=== PATIENT | female | born 1990 | race Caucasian/White ===

== ENCOUNTER 2020-12-03 12:56 | Emergency (ER) | payer OTHER, SELFPAY | END 2020-12-03 15:40 | disposition left against medical advice (07) | LOC: HO.ED 15:08 | PROVIDERS: Emergency Provider Emergency Medicine; PCP Nurse Practitioner Family | DX: R21 Rash and other nonspecific skin eruption (principal) ==

== ENCOUNTER 2021-05-09 13:30 | Emergency (ER) | payer OTHER, SELFPAY ==
--- NOTE | 2021-05-09 | ECG_ITS ---
Test Reason : sob Blood Pressure : / mmHG Vent. Rate : 073 BPM Atrial Rate : 073 BPM P-R Int : 134 ms QRS Dur : 094 ms QT Int : 384 ms P-R-T Axes : 070 081 069 degrees QTc Int : 423 ms Normal sinus rhythm Incomplete right bundle branch block Borderline ECG No previous ECGs available Referred By: Generic ED Physician Electronically Signed By:Chase Curran
--- NOTE | ~2021-05-09 | XR_ITS ---
EXAMINATION: XR CHEST CLINICAL INFORMATION: Cough. COMPARISON: None. TECHNIQUE: PA view of the chest was obtained. FINDINGS: Normal appearance of the cardiomediastinal silhouette. Diffuse interstitial thickening without focal airspace opacities, pleural effusions or pneumothorax. No acute osseous abnormalities. The visualized upper abdomen is within normal limits. XR/XR chest 1V IMPRESSION: Mild interstitial thickening bilaterally is nonspecific and could be associated with asthma, bronchitis, reactive airways disease or atypical viral infections. Recommend clinical correlation.
[2021-05-09 16:19] VITALS: BP 100/52; PULSE 67; RESP 16; TEMP 36.9; O2SAT 95; BMI 20.1
[2021-05-09 18:21] LABS: COVID-19 Test Negative (Negative)
[2021-05-09 18:25] LABS: IDNOW Serial# 08D9AD1C; Influenza A Positive (Negative); Influenza B2 Negative (Negative); Strep A Nucleic Acid Negative (Negative)
--- NOTE | 2021-05-09 18:33 | ED_ITS ---
HPI - URI/Sore Throat General Chief Complaint: Upper Respiratory Symptoms Stated Complaint: Chest pain /SOB Time Seen by Provider: 05/09/21 17:35 Source: patient and family Mode of arrival: ambulatory Limitations: no limitations History of Present Illness HPI Narrative: 30-year-old female presenting to the ED with complaints of chills, fatigue, malaise, nasal congestion/ rhinorrhea and a productive cough since after she was exposed to someone with influenza. She denies being vaccinated to influenza. She she reports associated shortness of breath when she is coughing otherwise does not have any other shortness of breath. She denies any measured fevers, dizziness, headache, neck pain/ stiffness, trouble swallowing or breathing, loss of taste or smell, sore throat, recent oral intercourse, chest pain, dyspnea on exertion, orthopnea, palpitations, lower extremity edema or calf tenderness, nausea/vomiting / diarrhea constipation, abdominal pain, back pain, rashes or any other symptoms complaints or concerns at this time. She denies being on any oral contraceptive. MD elicited complaint: cough, rhinorrhea and nasal congestion Onset (ago): day(s) (4) Consistency: constant Severity: mild Description of mucous: clear, watery and yellow Able to tolerate fluids by mouth: Yes Exacerbating factors: deep breaths and other ( and coughing) Relieving factors: nothing Context: sick contacts Associated symptoms: chills, myalgias, rhinorrhea, nasal congestion, cough and shortness of breath Treatments prior to arrival: none Related Data Previous Rx's Medication Instructions Recorded acetaminophen 500 mg tablet 1,000 mg PO QID PRN #14 tab 05/09/21 (Tylenol Extra Strength) benzonatate 100 mg capsule 100 mg PO BID PRN #10 cap 05/09/21 ibuprofen 800 mg tablet 800 mg PO Q8H PRN #14 tab 05/09/21 nystatin 100,000 unit/mL oral 100,000 unit PO DAILY #473 ml 05/09/21 suspension Allergies Allergy/AdvReac Type Severity Reaction Status Date / Time codeine [CODEINE] Allergy Unknown RASH Unverified 11/06/19 19:06 codeine Allergy Unknown hives Uncoded 03/31/16 00:00 Review of Systems Review of Systems: Constitutional : + fatigue/malaise/ chills, No Weight loss, No Night Sweats ENT/Mouth : + nasal congestion/rhinorrhea, No Hearing loss, No Ear Pain, No Sinus Pain, No Hoarseness, No sore throat, No Swallowing Difficulty Eyes: No Eye Pain, No Swelling, No Redness, No Foreign Body, No Discharge, No Vision Changes Cardiovascular : No Chest Pain, + SOB, No Dyspnea on Exertion, No Orthopnea, No Edema, No Palpitations Respiratory : + Cough, No Sputum, No Wheezing, No Smoke Exposure, No Dyspnea Gastrointestinal : No Nausea, No Vomiting, No Diarrhea, No Constipation, No abdominal Pain, No Hematochezia, No Melena Genitourinary : no irregular bleeding, No Dysuria, No Urinary Frequency, No Hematuria, No Urinary Incontinence, No Urgency, No Flank Pain, No Urinary Flow Changes, No Hesitancy Musculoskeletal : No joint pain, + Myalgias, No Joint Swelling Skin : No Skin Lesions, No rash Neuro : No Weakness, No Numbness, No Paresthesias, No Loss of Consciousness, No Dizziness, No Headache Psych : No Anxiety/Panic, No Depression, No SI/HI/AH/VH, No Social Issues, Heme/Lymph: No Bruising, No Bleeding,No Lymphadenopathy Endocrine : No Polyuria, No Polydipsia, No Temperature Intolerance Yes all other systems are reviewed and are negative [facility] Past Medical History Attestation statement: The following information was validated with the patient. Social History Social History Advance Directives: No Advance Directives Information Provided: No Patient : No Physical Exam Vital Signs: Vital Signs: Last Vital Signs Temp 98.4 F 05/09/21 16:19 Pulse 67 05/09/21 16:19 Resp 16 05/09/21 16:19 BP 100/52 L 05/09/21 16:19 Pulse Ox 95 05/09/21 16:19 BMI result Body Mass Index 20.1 vital signs have been reviewed as normal and appeared to be correct. Blood pressure 100/52. Heart rate normal. Respiration rate normal. Temperature normal. Oxygen saturation normal. Appearance: Alert. Oriented X3. No acute distress. Head: Normal external exam. Normocephalic. Atraumatic. Eyes: PERRLA. EOMI. Conjunctiva and sclera normal. Eyelids normal. ENT: EAC normal. TM's Normal. Pharynx normal. Uvula midline. Moist mucous membranes. patient noted to have white plaques on tongue unable to be removed consistent with thrush. Otherwise no additional lesions/ulcerations or masses noted on the tongue. Normal voice. No trismus noted. No drooling noted. No muffled voice noted. Neck: Normal inspection. Neck supple. FROM. No adenopathy. Thyroid Normal. No tracheal deviation noted. No crepitus is noted. No meningeal signs. No neck mass noted. No signs of trauma noted. CVS: Normal heart rate and rhythm. Heart sound normal. Pulses normal throughout. No murmurs/rales/gallops. Respiratory: No respiratory distress. Painless inspiration. Breath sounds normal. No wheezes/rales/rhonchi noted. Chest nontender. No crepitus is noted. No signs of trauma noted. No accessory muscle usage noted or decreased air movement noted. No signs of trauma. Abdomen: Soft and nontender. Bowel sounds normal in all 4 quadrants. No distention noted. No organomegaly noted. No visible injury noted. Back: No CVA tenderness. Full range of motion noted. Nontender. No signs of trauma. Patient neuro intact bilaterally and distally on all 4 extremities. Patient's reflexes intact bilaterally and distally on all 4 extremities. No rashes/lesion/induration/fluctuance or signs of infection noted. Skin: Skin warm and dry. Normal skin color. Normal skin turgor. No rash es/lesions/lacerations noted. Extremities: No lower extremity edema. No calf tenderness is noted. Extremities exhibit normal range of motion and nontender. Neuro: Oriented X 3. No motor deficit. No sensory deficit. Reflexes normal. Normal steady gait. No focal neuro deficits noted. CN's II-XII intact bilaterally? Vascular: + radial pulses/+ 2 distal pedal pulses/+2 dorsalis pedis b/l. Normal cap refill. No cyanosis noted to upper extremity nails and lower extremity toes nails. Course Course Course Narrative: 30-year-old female presenting to the ED with complaints of chills, fatigue, malaise, nasal congestion/ rhinorrhea and a productive cough since after she was exposed to someone with influenza. She denies being vaccinated to influenza. She she reports associated shortness of breath when she is coughing otherwise does not have any other shortness of breath. She denies any measured fevers, dizziness, headache, neck pain/ stiffness, trouble swallowing or breathing, loss of taste or smell, sore throat, recent oral intercourse, chest pain, dyspnea on exertion, orthopnea, palpitations, lower extremity edema or calf tenderness, nausea/vomiting / diarrhea constipation, abdominal pain, back pain, rashes or any other symptoms complaints or concerns at this time. She denies being on any oral contraceptive. patient positive for influenza. Negative for COVID. Negative for strep. Chest x-ray consistent with viral syndrome/ asthma otherwise no evidence of p neumonia or any other acute processes. EKG was normal sinus rhythm with right bundle branch block otherwise no acute ischemic changes are noted. Therefore at this time will DC home with symptomatic treatment and treatment for oral thrush otherwise instructions to self isolate and to return if any new or worsening symptoms to follow up with primary care provider. Patient understands agrees with this plan. MDM - URI/Sore Throat Medical Records Attestation: I reviewed the patient's medical records. Lab Data Attestation: I reviewed the patient's lab results. Labs: Lab Results 05/09/21 05/09/21 05/09/21 Range/Units 17:49 17:49 17:49 COVID-19 (YONNY) Negative (Negative) COVID-19 Clin Com See Note Influenza Type A (UGO) Positive A (Negative) Influenza Type B (UGO) Negative (Negative) Influenza A & B Note See Note S. pyogenes GrpA UGO Negative (Negative) Imaging Data Chest x-ray: Attestation: I personally reviewed and interpreted this imaging study as follows: Radiologist's impression: FINDINGS: Normal appearance of the cardiomediastinal silhouette. Diffuse interstitial thickening without focal airspace opacities, pleural effusions or pneumothorax. No acute osseous abnormalities. The visualized upper abdomen is within normal limits. XR/XR chest 1V IMPRESSION: Mild interstitial thickening bilaterally is nonspecific and could be associated with asthma, bronchitis, reactive airways disease or atypical viral infections. Recommend clinical correlation. Discharge Plan Discharge Clinical Impression: Influenza A, Candidiasis of mouth Patient Disposition: Home, Self-Care Instructions: Influenza (DC), Flu Shot (Vaccine) for Adults (ED), Droplet Precautions (ED), Oral Candidiasis (ED) Prescriptions: New ibuprofen 800 mg tablet 800 mg PO Q8H PRN (Reason: pain) Qty: 14 0RF acetaminophen [Tylenol Extra Strength] 500 mg tablet 1,000 mg PO QID PRN (Reason: fever or pain) Qty: 14 0RF benzonatate 100 mg capsule 100 mg PO BID PRN (Reason: cough) Qty: 10 0RF nystatin 100,000 unit/mL suspension 100,000 unit PO DAILY Qty: 473 0RF Rx Instructions: administer 1/2 of dose in each side of the mouth Referrals: Physician,Unknown J [Primary Care Provider] - 2 days (your pcp) Stand Alone Forms: Work/School Release Print Language: Welsh
== END 2021-05-09 19:01 | disposition home or self-care (01) ==
PROVIDERS: Physician Assistant Medical; Emergency Provider Internal Medicine
DX: J11.1 Influenza due to unidentified influenza virus with other respiratory manifestations (principal); B37.0 Candidal stomatitis; R06.02 Shortness of breath; F17.200 Nicotine dependence, unspecified, uncomplicated
CPT/HCPCS: 71045; 87502; 87635; 87651; 93005; 99283

== ENCOUNTER 2021-05-16 01:02 | Inpatient (IN) | payer OTHER, SELFPAY ==
[2021-05-16] VITALS (8 sets, daily range): BP systolic 102–142; BP diastolic 60–85; PULSE 69–117; RESP 12–20; TEMP 36.3–38.7; O2SAT 93–99; BMI 20.1
--- NOTE | ~2021-05-16 | XR_ITS ---
EXAMINATION: XR CHEST CLINICAL INFORMATION: Cough COMPARISON: 05/09/2021 TECHNIQUE: PA and lateral views of the chest were obtained. FINDINGS: Patchy multifocal airspace consolidation in both lungs has progressed as compared to prior and is concerning for a multifocal pneumonia. No pneumothorax or pleural effusion. Cardiac and mediastinal contours are normal. No acute osseous findings. XR/XR chest 2V IMPRESSION: Patchy multifocal airspace consolidation in both lungs, most concerning for multifocal pneumonia.
--- NOTE | ~2021-05-16 | CT_ITS ---
EXAMINATION: CT HEAD WITHOUT CONTRAST CLINICAL INFORMATION: Headache, healing user COMPARISON: None TECHNIQUE: Contiguous axial imaging was performed from the skull base to vertex without intravenous administration of contrast. This CT examination was performed using dose optimization techniques as appropriate, variously including the following: *Automated exposure control *Adjustment of mA and/or kV according to patient size (this includes techniques or standardized protocols for targeted exams where dose is matched to indication/reason for exam; i.e. extremities or head) *Use of iterative reconstruction technique DLP: 573 mGy-cm FINDINGS: There is no evidence of acute intracranial hemorrhage or territorial infarction. No abnormal mass effect or midline shift is seen. Arias to white matter differentiation is well preserved. No extra-axial fluid collections are identified. The ventricles are normal in size. There is no abnormal attenuation within the brain parenchyma. The osseous structures and soft tissues are normal. There is diffuse mucoperiosteal thickening bilateral frontal, ethmoid, sphenoid, maxillary sinuses. There is air-fluid level in bilateral maxillary sinuses. There is mild mucoperiosteal thickening in right mastoid sinus as well. CT/CT head/brain wo con IMPRESSION: No acute intracranial process seen. Chronic pansinusitis with acute bilateral maxillary sinusitis.
[2021-05-16 02:15] LABS: COVID-19 Test Negative (Negative)
--- NOTE | 2021-05-16 04:27 | ED.GENADULT ---
HPI - General Adult General Chief complaint: General Medical Stated complaint: general weakness, flu? Time Seen by Provider: 05/16/21 04:27 Source: patient Mode of arrival: ambulatory Limitations: no limitations History of Present Illness HPI narrative: 30-year-old female who presents emergency department for evaluation of feeling sick for 2 weeks. The patient was seen 1 week prior and was positive for influenza A. she states that over the past 2 weeks she has had a cough which is productive of thick yellow sputum. She feels short of breath and has dyspnea on exertion. She denied chest pain. She states she has had fever on and off. She also states she has a constant headache which is located on the top of her head, the pain is a pressure-like pain which is 7/10 at its worst. She states that her voice is hoarse but she denied sore throat. She states she has had fatigue and body aches. She states that she is unable to taste food. She had nausea with several episodes of vomiting today. She denied diarrhea. The patient has a history of injection drug use and states that she continues to use intranasal heroin. She states she uses 10 bags of heroin daily. Related Data Previous Rx's Medication Instructions Recorded acetaminophen 500 mg tablet 1,000 mg PO QID PRN #14 tab 05/09/21 (Tylenol Extra Strength) benzonatate 100 mg capsule 100 mg PO BID PRN #10 cap 05/09/21 ibuprofen 800 mg tablet 800 mg PO Q8H PRN #14 tab 05/09/21 nystatin 100,000 unit/mL oral 100,000 unit PO DAILY #473 ml 05/09/21 suspension Allergies Allergy/AdvReac Type Severity Reaction Status Date / Time codeine [CODEINE] Allergy Unknown RASH Unverified 11/06/19 19:06 codeine Allergy Unknown hives Uncoded 03/31/16 00:00 Review of Systems Review of Systems: Yes all other systems are reviewed and are negative [facility] Past Medical History [facility] Narrative: Past medical history: Heroin use disorder, IV and intranasal. Past surgical history: None. Social history: She smokes 2 cigarettes per day times 11 years. She denies alcohol use. She uses heroin daily. She states she used to inject heroin but she is currently using intranasal heroin 10 bags a day. Social History Social History Alcohol intake: never Patient Tobacco Use Status: Current everyday Tobacco user Use of substances other than those prescribed or required for medical reasons: Yes Substance Use Type: Heroin Substance Use Frequency: Chronic Longstanding Last Used Substance: Just Prior to Admission Advance Directives: No Advance Directives Information Provided: Yes Physical Exam ED Vital Signs: Vital Signs - 24 hr 05/16/21 01:13 05/16/21 02:00 05/16/21 04:16 Temperature 101.6 F H 99 F 98.8 F Pulse Rate 117 H 88 96 Respiratory Rate 18 12 16 Blood Pressure 140/76 H 133/79 142/85 H Pulse Oximetry 93 94 94 BMI result Body Mass Index 20.1 Const Other: Awake, alert, female patient, she is very thin, she does have a slightly hoarse voice, she answers all questions appropriately, she has a productive sounding cough, she is pleasant and cooperative and does not appear to be in distress. HENMT Head: Yes normal to inspection, Yes normocephalic and Yes atraumatic Ears: external ears normal General nose exam: Normal external nose present Face and sinus: Yes normal facial exam Mouth: Normal oral and palatal mucosa present Throat: Yes posterior oropharynx normal Eyes General: appearance normal, both eyes and all related structures Pupils: Equal, round and reactive pupils present Neck Neck: Yes normal visual inspection, Yes no lymphadenopathy, Yes trachea midline and Yes supple Chest Chest palpation & inspection: normal inspection of the chest and normal palpation of entire chest wall Resp Effort & Inspection: normal respiratory effort and able to speak in complete sentences Auscultation: rhonchi throughout Cardio Rate: regular rate Rhythm: regular rhythm Heart sounds: S1 normal heart sound present, S2 normal heart sound present and no murmurs GI Inspection: Yes normal to inspection Palpation (GI): Soft to palpation, nontender and no guarding Auscultation: normal bowel sounds General: Yes no CVA tenderness Back/Spine/Pelvis Back: no CVA tenderness Skin General skin exam: no rashes or lesions noted Neuro Cranial nerves: Yes CN's II-XII intact bilaterally and Yes Equal, round and reactive pupils present Cognition (Neuro): normal cognition Motor exam (neuro): 5/5 motor strength present throughout Extrem Other: Patient does have track neil, no rashes or lesions, no evidence of cellulitis. Psych Appearance: grossly normal Speech and movement: Normal speech and movement present Affect: normal affect Attitude: cooperative Thought process: Normal thought process present Thought content: Normal thought content present Course Course Course Narrative: 30-year-old female with history of opiate use disorder, currently using intranasal heroin 10 bags a day, who tested positive for influenza A 1 week prior who presents to the emergency department for evaluation of 2 weeks of productive cough, headaches, intermittent fever, shortness of breath, dyspnea on exertion, fatigue, body aches loss of sense of taste. Initial vital signs revealed an elevated pulse of 117 an elevated temperature of 101.6 degrees F orally. Patient's blood pressures were slightly elevated 140/76. Lung exam did reveal diffuse rhonchorous sounds otherwise were unremarkable. Chest x-ray and COVID-19 test were ordered at triage. the COVID-19 test was negative. The chest x-ray was interpreted by the radiologist as patchy multifocal airspace consolidations in both lungs, most concerning for multifocal pneumonia. The differential includes but is not limited to viral pneumonia, bacterial pneumonia pulmonary embolism. I did order a laboratory evaluation to include CBC, CMP, lactate, blood cultures x2. I will also obtain a CT scan of her head secondary to her headache and a CT angiogram the program upper lung to rule out PE. I will treat her pneumonia with ceftriaxone 1 g IV and azithromycin 500 mg IV. Her headache will be treated with Toradol 15 mg IV, regular and 10 mg IV and Benadryl 25 mg IV. Given her 10 bags a day heroin use, I am concerned that she will withdraw from opiates therefore she was ordered to get methadone 20 mg orally. 0552: I did discuss the patient's presentation with the covering hospitalist, Dr. Tellez and she did accept the patient to the hospital service. After this discussion, I did add vancomycin 750 mg IV to the patient's antibiotic regimen Since the patient is a high risk for MRSA. Medical Decision Making Lab Data Result diagrams: 05/16/21 05:01 05/16/21 05:01 Labs: Lab Results 05/16/21 05/16/21 05/16/21 Range/Units 01:54 05:01 05:01 WBC 15.9 H (4.8-10.8) X10*3/uL RBC 4.04 L (4.20-5.50) X10*6/uL Hgb 12.1 (12.0-16.0) g/dl Hct 35.2 L (37.0-47.0) % MCV 87.1 (80.0-98.0) fL MCH 30.0 (27.0-33.0) pg MCHC 34.4 (31.0-35.0) g/dl RDW 12.4 (11.0-16.0) % Plt Count 345 (160-400) X10*3/uL MPV 10.6 (9.4-12.3) fL Immature Gran % (Auto) 1.1 H (0.0-0.4) % Neut % (Auto) 75.7 H (45-73) % Lymph % (Auto) 14.5 L (20-40) % Gem % (Auto) 7.6 (2-11) % Eos % (Auto) 0.9 (0-4) % Baso % (Auto) 0.2 (0-2) % Lymph # (Auto) 2.3 (1.2-4.9) X10*3/uL Gem # (Auto) 1.2 (0.1-1.2) X10*3/uL Eos # (Auto) 0.1 (0.0-0.4) X10*3/uL Baso # (Auto) 0.0 (0.0-0.2) X10*3/uL Abs Immat Gran (auto) 0.18 H (0.00-0.03) X10*3/uL Absolute Neuts (auto) 12.0 H (2.0-8.3) x10*3/uL Absolute Nucleated RBC 0.000 (0.0-0.012) X10*3/uL Nucleated RBC % (auto) 0.0 (0.0-0.2) /100WBC Sodium 139 (135-145) mmol/L Potassium 4.0 (3.3-5.1) mmol/L Chloride 105 (96-108) mmol/L Carbon Dioxide 24 (22-29) mmol/L Anion Gap 14 (12-20) BUN 8 L (9-16) mg/dL Creatinine 0.63 (0.5-1.4) mg/dL Estim Creat Clear Calc 103.7 Estimated GFR > 60 Random Glucose 106 (60-115) mg/dL Lactic Acid (0.5-2.0) mmol/L Calcium 8.6 (8.4-10.2) mg/dL Total Bilirubin 0.4 (0.0-1.0) mg/dL AST 11 (5-31) U/L ALT 12 (0-31) U/L Alkaline Phosphatase 98 (39-117) U/L C-Reactive Protein 14.06 H (< or = 0.50) mg/dL Total Protein 6.7 (6.5-8.0) g/dL Albumin 3.4 L (3.5-5.0) g/dL Lipase 4 L (8-78) U/L Beta HCG, Quant < 2 mIU/mL COVID-19 (YONNY) Negative (Negative) COVID-19 Clin Com See Note 05/16/21 Range/Units 05:01 WBC (4.8-10.8) X10*3/uL RBC (4.20-5.50) X10*6/uL Hgb (12.0-16.0) g/dl Hct (37.0-47.0) % MCV (80.0-98.0) fL MCH (27.0-33.0) pg MCHC (31.0-35.0) g/dl RDW (11.0-16.0) % Plt Count (160-400) X10*3/uL MPV (9.4-12.3) fL Immature Gran % (Auto) (0.0-0.4) % Neut % (Auto) (45-73) % Lymph % (Auto) (20-40) % Gem % (Auto) (2-11) % Eos % (Auto) (0-4) % Baso % (Auto) (0-2) % Lymph # (Auto) (1.2-4.9) X10*3/uL Gem # (Auto) (0.1-1.2) X10*3/uL Eos # (Auto) (0.0-0.4) X10*3/uL Baso # (Auto) (0.0-0.2) X10*3/uL Abs Immat Gran (auto) (0.00-0.03) X10*3/uL Absolute Neuts (auto) (2.0-8.3) x10*3/uL Absolute Nucleated RBC (0.0-0.012) X10*3/uL Nucleated RBC % (auto) (0.0-0.2) /100WBC Sodium (135-145) mmol/L Potassium (3.3-5.1) mmol/L Chloride (96-108) mmol/L Carbon Dioxide (22-29) mmol/L Anion Gap (12-20) BUN (9-16) mg/dL Creatinine (0.5-1.4) mg/dL Estim Creat Clear Calc Estimated GFR Random Glucose (60-115) mg/dL Lactic Acid 0.9 (0.5-2.0) mmol/L Calcium (8.4-10.2) mg/dL Total Bilirubin (0.0-1.0) mg/dL AST (5-31) U/L ALT (0-31) U/L Alkaline Phosphatase (39-117) U/L C-Reactive Protein (< or = 0.50) mg/dL Total Protein (6.5-8.0) g/dL Albumin (3.5-5.0) g/dL Lipase (8-78) U/L Beta HCG, Quant mIU/mL COVID-19 (YONNY) (Negative) COVID-19 Clin Com Critical Care Time Critical Care Time Critical Care Time: Yes Total Critical Care Time: 30 Attestation: Critical Care: The patient was critically ill with a high probability of imminent or life threatening deterioration. I spent greater than 30 minutes of discontinuous time evaluating the patient,delivering critical care at the bedside, discussing and evaluating pertinent data with consultants. Critical care time does not include time spent performing separately billable procedures or teaching. Total time spent performing critical care was 30 minutes. Discharge Plan Discharge Patient Disposition: Admitted As Inpatient Prescriptions: No Action ibuprofen 800 mg tablet 800 mg PO Q8H PRN (Reason: pain) Qty: 14 0RF acetaminophen [Tylenol Extra Strength] 500 mg tablet 1,000 mg PO QID PRN (Reason: fever or pain) Qty: 14 0RF benzonatate 100 mg capsule 100 mg PO BID PRN (Reason: cough) Qty: 10 0RF nystatin 100,000 unit/mL suspension 100,000 unit PO DAILY Qty: 473 0RF Rx Instructions: administer 1/2 of dose in each side of the mouth
[2021-05-16] MEDS: 0.9 % Sodium Chloride 1,000 ML 999 ML IV (05:07)
[2021-05-16 05:08] LABS: MANUAL DIFF FLAG NO
[2021-05-16 05:09] LABS: Basophils Percent Auto 0.2 % (0-2); Eosinophils Absolute Auto 0.1 X10*3/uL (0.0-0.4); Eosinophils Percent Auto 0.9 % (0-4); Hematocrit 35.2 % (37.0-47.0); Hemoglobin 12.1 g/dl (12.0-16.0); Imm Gran Abs Auto 0.18 X10*3/uL (0.00-0.03); Imm Gran Pct Auto 1.1 % (0.0-0.4); Lymphocytes Absolute Auto 2.3 X10*3/uL (1.2-4.9); Lymphocytes Percent Auto 14.5 % (20-40); Mean Corpuscular HGB Conc 34.4 g/dl (31.0-35.0); Mean Corpuscular Volume 87.1 fL (80.0-98.0); Mean Platelet Volume 10.6 fL (9.4-12.3); Monocytes Absolute Auto 1.2 X10*3/uL (0.1-1.2); Monocytes Percent Auto 7.6 % (2-11); Neutrophils Percent Auto 75.7 % (45-73); Platelet Count 345 X10*3/uL (160-400); Red Blood Count 4.04 X10*6/uL (4.20-5.50); Red Cell Distribution Width 12.4 % (11.0-16.0); White Blood Count 15.9 X10*3/uL (4.8-10.8)
[2021-05-16 05:19] LABS: Lactic Acid 0.9 mmol/L (0.5-2.0)
[2021-05-16] MEDS: cefTRIAXone sodium 1 GM in 0.9 % Sodium Chloride 50 ML IV (05:23)
[2021-05-16] MEDS: Metoclopramide HCl 10 MG/2 ML VIAL IVPUSH (05:24)
[2021-05-16] MEDS: diphenhydrAMINE HCL 50 MG/ML VIAL 25 MG IVPUSH (05:24)
[2021-05-16] MEDS: Ketorolac Tromethamine 15 MG/ML VIAL IVPUSH (05:25)
[2021-05-16 05:26] LABS: Alanine Aminotransferase 12 U/L (0-31); Albumin Level 3.4 g/dL (3.5-5.0); Alkaline Phosphatase 98 U/L (39-117); Anion Gap 14 (12-20); Aspartate Amino Transferase 11 U/L (5-31); Bilirubin Total 0.4 mg/dL (0.0-1.0); Blood Urea Nitrogen 8 mg/dL (9-16); C Reactive Protein 14.06 mg/dL (< or = 0.50); Calcium 8.6 mg/dL (8.4-10.2); Carbon Dioxide 24 mmol/L (22-29); Chloride 105 mmol/L (96-108); Creatinine Clr Calc Pharmacy 103.7; Estimated Glomerular Filt Rate > 60; Glucose Random 106 mg/dL (60-115); Lipase 4 U/L (8-78); Sodium 139 mmol/L (135-145); Total Protein 6.7 g/dL (6.5-8.0)
[2021-05-16 05:32] LABS: HCG Quantitative < 2 mIU/mL
[2021-05-16] MEDS: Azithromycin 500 MG in 0.9 % Sodium Chloride 250 ML 125 MG IV (06:07)
[2021-05-16] MEDS: methADONE HCl 10 MG TABLET 20 MG PO (06:07)
[2021-05-16 06:27] LABS: Erythrocyte Sedimentation Rate 94 MM/HR (0-20)
[2021-05-16] MEDS: vancomycin HCL 750 MG in 0.9 % Sodium Chloride 250 ML 265 MG IV (07:04)
--- NOTE | 2021-05-16 07:17 | PC.NURSE ---
Patient was at CAT SCAN and iv infiltrated. Ice applied to infiltrate. aware
--- NOTE | 2021-05-16 09:03 | PHA.MEDREC ---
Pharmacy Consult ? Medication Reconciliation Pharmacy has completed the medication reconciliation. PT FINISHED ALL MEDS PRESCRIBED 05/10. NOT ON ANY OTHER HOME MEDS
--- NOTE | 2021-05-16 09:48 | P.HPHOSP_ITS ---
History of Present Illness Date of Service: 05/16/21 Attending physician on admission: Cheryl Arias Chief Complaint: shortness of breath A 10-year-old female patient recently diagnosed to have influenza on May 09 presented to [facility] ED with symptoms of persistent shortness of breath worse with exertion, associated with cough productive of thick yellow phlegm, with associated fees fever and chills on and off and headache located on top of her head pressure like 7/10 at its worst, also complaining of generalized body ache, weakness no taste in food, also complained of decreased by mouth intake with nausea and several episodes of vomiting denies abdominal pain no diarrhea, denies chest pain, no palpitation. in ED workup showed bilateral infiltrate suggestive of multi focal pneumonia, COVID test is negative, noted to have elevated WBC count and a fever of 101.6, with elevated CRP 14.06, patient treated in the emergency room with IV azithromycin, ceftriaxone, IV fluid and 1 dose of methadone was given with history of intranasal of heroin use, patient admits of using 10 bags of heroin daily previously she was using IV drugs, patient denies recent history of travel. Review of Systems Review of Systems: General headache , no dizziness, on and off fever and chills. CVS no chest pain, no palpitation. Respiratory cough with thick sputum production no respiratory distress. Gastrointestinal multiple episodes of nausea and vomiting no abdominal pain no diarrhea skin no rash Yes all other systems are reviewed and are negative PMFSH Functional capacity: independent ambulation Pertinent family history: parents are alive and healthy Social History Alcohol intake: never Patient Tobacco Use Status: Current everyday Tobacco user Use of substances other than those prescribed or required for medical reasons: Yes Substance Use Type: Heroin Substance Use Frequency: Chronic Longstanding Last Used Substance: Just Prior to Admission Advance Directives: No Advance Directives Information Provided: Yes Meds Allergies Allergy/AdvReac Type Severity Reaction Status Date / Time codeine [CODEINE] Allergy Unknown RASH Unverified 11/06/19 19:06 codeine Allergy Unknown hives Uncoded 03/31/16 00:00 Active Medications: Current Medications Acetaminophen (Acetaminophen 325 Mg Tablet) 650 mg PO Q6H PRN PRN Reason: Pain, Mild (Pain Scale 1-3) Guaifenesin/Dextromethorphan (Guaifenesin Dm 100/10/5 Ml 5 Ml Syrup) 10 ml PO Q6H PRN PRN Reason: cough Ceftriaxone Sodium 1 gm/ (Sodium Chloride) 50 mls @ 100 mls/hr IV Q24H ALEXANDRO Azithromycin 500 mg/ Sodium (Chloride) 250 mls @ 125 mls/hr IV Q24H ALEXANDRO Ondansetron HCl (Ondansetron Hcl 4 Mg/2 Ml Vial) 4 mg IVPUSH Q8H PRN PRN Reason: Nausea and Vomiting Pharmacy Consult (Consult Rx Vancomycin Dosing) 1 each MISCELLANE DAILY PRN PRN Reason: Consult order Pharmacy Consult (Consult Rx Perform Med Rec) 1 each MISCELLANE ONCE PRN PRN Reason: Consult order Sodium Chloride (0.9 % Sodium Chloride Flush 3 Ml Syringe) 3 ml IVFLUSH QSHIFT [facility] Home Medications Medication Instructions Recorded Confirmed Last Taken Type No Known Home Meds 05/16/21 05/16/21 Unknown History Physical Exam Vital Signs and Narrative: Vital Signs: Last Vital Signs Temp 98.8 F 05/16/21 04:16 Pulse 69 05/16/21 07:17 Resp 20 05/16/21 07:17 BP 142/85 H 05/16/21 07:17 Pulse Ox 96 05/16/21 07:17 BMI result Body Mass Index 20.1 Const: Other: General resting comfortably, in no acute distress. HEENT pupil equal round reactive to light and accommodation Neck no JVD. CVS regular rate rhythm, Respiratory bilateral rhonchi, no respiratory distress Gastrointestinal abdomen soft, nontender, bowel sounds audible, no guarding , no rigidity. Extremities no edema. Neuro nonfocal Skin no rash psych appropriate affect Results Labs CBC and Chem 7: 05/16/21 05:01 05/16/21 05:01 Labs: Laboratory Results - last 24 hr 05/16/21 05/16/21 05/16/21 01:54 05:01 05:01 MCV 87.1 MCH 30.0 MCHC 34.4 RDW 12.4 Plt Count 345 MPV 10.6 Immature Gran % (Auto) 1.1 H Neut % (Auto) 75.7 H Lymph % (Auto) 14.5 L [place] % (Auto) 7.6 Eos % (Auto) 0.9 Baso % (Auto) 0.2 Lymph # (Auto) 2.3 [place] # (Auto) 1.2 Eos # (Auto) 0.1 Baso # (Auto) 0.0 Abs Immat Gran (auto) 0.18 H Absolute Neuts (auto) 12.0 H Absolute Nucleated RBC 0.000 Nucleated RBC % (auto) 0.0 ESR Anion Gap 14 Estim Creat Clear Calc 103.7 Estimated GFR > 60 Random Glucose 106 Lactic Acid Calcium 8.6 Total Bilirubin 0.4 AST 11 ALT 12 Alkaline Phosphatase 98 C-Reactive Protein 14.06 H Total Protein 6.7 Albumin 3.4 L Lipase 4 L Beta HCG, Quant < 2 COVID-19 (YONNY) Negative COVID-19 Clin Com See Note 05/16/21 05/16/21 05:01 05:01 MCV MCH MCHC RDW Plt Count MPV Immature Gran % (Auto) Neut % (Auto) Lymph % (Auto) [place] % (Auto) Eos % (Auto) Baso % (Auto) Lymph # (Auto) [place] # (Auto) Eos # (Auto) Baso # (Auto) Abs Immat Gran (auto) Absolute Neuts (auto) Absolute Nucleated RBC Nucleated RBC % (auto) ESR 94 H Anion Gap Estim Creat Clear Calc Estimated GFR Random Glucose Lactic Acid 0.9 Calcium Total Bilirubin AST ALT Alkaline Phosphatase C-Reactive Protein Total Protein Albumin Lipase Beta HCG, Quant COVID-19 (YONNY) COVID-19 Clin Com Imaging Radiologist's Impressions: Impressions Chest X-Ray 05/16/21 02:10 IMPRESSION: Patchy multifocal airspace consolidation in both lungs, most concerning for multifocal pneumonia. Head CT 05/16/21 06:50 IMPRESSION: No acute intracranial process seen. Chronic pansinusitis with acute bilateral maxillary sinusitis. Assessment and Plan (1) Pneumonia: Qualifiers: Laterality: bilateral Pneumonia type: due to unspecified organism Status: Acute (2) History of substance abuse: Status: Acute Plan 30-year-old female patient with no significant past medical history presented to [facility] due to symptoms of worsening shortness of breath on and off fever generalized weakness cough productive of thick phlegm patient recently diagnosed to have influenza a infection workup revealed multifocal pneumonia patient will be admitted to [facility] with diagnosis of sepsis due to pneumonia and heroin use disorder.. Sepsis due to multifocal pneumonia patient meets sepsis due to tachycardia leukocytosis and fever will admit to medical floor continue IV ceftriaxone and azithromycin, will use Tylenol for fever, Robitussin for cough follow CBC and CRP, follow blood cultures continue close clinical follow-up intractable headache CT head negative for intracranial pathology but showed pansinusitis and acute maxillary sinusitis continue antibiotic as above headache likely due to sepsis continue Tylenol and follow clinical course opiate use disorder use heroin 10 bags intranasally daily, treated in ER with 1 dose of methadone, will obtain care team consult, will use as needed Ativan/ morphine. code status full code DVT prophylaxis early ambulation patient will need to inpatient night hospitalization due to sepsis related to multifocal pneumonia need IV antibiotics. Quality Stroke Does the patient have a stroke diagnosis?: No VTE Prior VTE?: No VTE Risk Level:: Medical - low VTE Device Contraindication: Treatment Not Indicated VTE Drug Contraindication: Treatment Not Indicated
--- NOTE | 2021-05-16 10:47 | PC.NURSE ---
pt with visitor at bedside
[2021-05-16 13:23] LABS: Appearance Urine CLEAR; Color Urine YELLOW; Glucose Urine UA NEG (NEG); Leukocyte Esterase Urine NEG (NEG); Nitrite Urine NEG (NEG); PH 6.5 (5.0-8.0); UACC Culture Trigger NO; Urine Blood 2+ (NEG); Urine Ketones NEG (NEG); Urine Protein NEG (NEG-TRACE)
[2021-05-16 13:33] LABS: Mucus Urine TRACE /LPF; Squamous Epithelial Cell Urine TRACE /LPF
[2021-05-16] MEDS: 0.9 % Sodium Chloride Flush 3 ML SYRINGE IVFLUSH (16:17)
[2021-05-16] MEDS: Acetaminophen 325 MG TABLET 650 MG PO (16:17)
--- NOTE | 2021-05-16 18:52 | MHC.CM.PN ---
CM met with admitted patient with bed assignment pending. No HCP on file. Reviewed, completed and signed per protocol Copies given and uploaded into [facility] and [facility] [place]. HCP/mother Aaliyah Pereira ([phone]). Lives alone. No DME. No services. [facility] x1 only. CARE/recovery services notified of pt admission. Daily Heroin/10 bags/day. Started on methadone 05/16. D/C plan:home without services. Pt to arrange transportation. CM to follow for d/c needs.
[2021-05-17 02:20] VITALS: PULSE 48
[2021-05-17 05:08] VITALS: BP 126/75; PULSE 64; RESP 16; TEMP 36.7; O2SAT 99
--- NOTE | 2021-05-17 06:11 | PC.NURSE ---
This RN assumed care at 1900. Patient was sitting with mother and requested more methadone. Throughout the night, patient intermittently was screaming out curse words, asked for pain medicine. Heart rate noted to be consistently between 45-55 throughout the night, RN did not give pain medicine, hospitalist aware and agrees with plan. Patient had 2 IVs at the start of the shift, claims she was tossing and turning all night and that they came out. Patient adamant that she did not pull them out, told tech I'm leaving if I don't get methadone . RN intervened, explained to patient that the methadone was a one-time order. Patient upset, but able to calm down, refused IV. Patient is somewhat behavioral, refusing to use the bathooms in overflow because they're gross and I'm not doing this . After encouragement from RN, patient allowed RN to attempt IV one time, unsuccessful due to patient movement. This RN notified hospitalist, called another RN to try. Patient was rude to other RN, and said I'm cold, let's try again later . This RN set limits with patient regarding gamey behavior and stated that the other nurse would be back to attempt IV insertion at 6:30.
[2021-05-17] MEDS: methADONE HCl 20 MG/2 ML ORAL.CONC 30 MG PO (09:29)
--- NOTE | 2021-05-17 11:10 | PC.NURSE ---
Pt resting in hospital bed offering multiple complaints. Pt stating that she did not like her breakfast, pt requesting coffee, a hair tie and methadone. Pt refusing to allow this RN to place a line until a methadone order is in. Addiction care team at bedside and placed methadone order. Pt provided with prescribed methadone and this RN attempted to place an IV. Upon placing the IV this RN received a flash instantly, but pt moved and starting cursing saying, prateek botello, that fucking hurts. multiple times. Pt asked not to use such profanities as this is an environment that has to promote healing and other patients can here her. radiology technician even reminded pt to not use curse words so loudly. This RN essentially was unable to obtain IV access. Pt refusing to let this RN try again. 2nd nurse notified and will attempt to place a line. unable to hang both azithromax and rocephin that was due early this AM. pt aware. lungs sound coarse, pt a/o, ambulatory to the bathroom. 2nd RN to attempt IV access on pt.
--- NOTE | 2021-05-17 11:41 | MHC.RECOVRN ---
Met with pt in Overflow 3 to follow up after methadone initiation. Pt received 30 mg at 0930. Pt awake, alert, laying in bed. Pt reports feeling better and denies current withdrawal symptoms. Pt reports using heroin, 2 bundles daily, IV, as well as cocaine, INH, all day every day. Pt does report not feeling well due to pneumonia and inability to taste things is bothersome. Pt would like to continue methadone, unsure which OTP to be linked to. Pt will be provided with a list of local OTPs to choose which would be best since pt stays in [place]. Discussed with Maria Esther Strickland APRN. Will continue to follow.
[2021-05-17] MEDS: Azithromycin 500 MG TABLET PO (12:13)
[2021-05-17] MEDS: Nicotine 21 MG PATCH.TD24 TRANSDERMA (12:13)
--- NOTE | 2021-05-17 14:37 | HO.ADDICTCON ---
History of Present Illness Date of Service: 05/17/2021 Chief Complaint: Pneumonia Reason for Consult: OUD Requesting physician: Cheryl Arias Sources of Information: patient interviewed and chart reviewed HPI Narrative: Patient is a 30-year-old female with history of opioid use and cocaine use disorder, currently medically admitted with pneumonia. Consult requested to evaluate and treat opioid use disorder--patient was administered methadone 20 mg on 05/16 to address opioid withdrawal. Patient seen several times today by this script writer, initially patient was not feeling well verbalizing withdrawal symptoms. Methadone 30 mg ordered and administered with positive affect. Patient seen again by this script writer and substance use in treatment history obtained. -age of 1st use 20. Patient reports that she was using Percocet and then at age 22 began to use heroin. -does report history of IV drug use, has not used IV in over 2 years. -last use reported as prior to admission. States she has been using approximately 2 bundles of heroin/fentanyl daily intranasal. -reports 3 lifetime overdoses. -reports history of methadone treatment. Highest dose approximately 60 mg. It has been sometime since she was last treatment. Longest period in recovery was about 18 months, and this is right before she had her baby in 2017. She reports that she does not have custody of her son. -family history of both alcohol, cocaine and opiate use disorder Patient reports history of psychiatric admission for depression and suicidal ideation. She states that she has previously been in care for PTSD, at this time has no behavioral health providers. She is currently living with her boyfriend of about 1 year. She states that they live in ?hotels?. Denies any history of HIV, hepatitis. Has not been tested in quite some time. Will order labs during this visit. Review of Systems Constitutional: Reports as per HPI Gastrointestinal: Denies loose stools and Denies nausea Diagnostics Vital Signs (24Hr): Vital Signs - 24 hr 05/16/21 18:00 05/16/21 20:00 05/17/21 02:20 Temperature 98.1 F 97.4 F Pulse Rate 78 48 L Respiratory Rate 16 16 Blood Pressure 119/67 125/84 Pulse Oximetry 99 05/17/21 05:08 Temperature 98.0 F Pulse Rate 64 Respiratory Rate 16 Blood Pressure 126/75 Pulse Oximetry 99 BMI result Body Mass Index 20.1 Labs Results: 05/16/21 05:01 05/16/21 05:01 Labs: Laboratory Results - last 48 hr 05/16/21 05/16/21 05/16/21 01:54 05:01 05:01 WBC 15.9 H RBC 4.04 L Hgb 12.1 Hct 35.2 L MCV 87.1 MCH 30.0 MCHC 34.4 RDW 12.4 Plt Count 345 MPV 10.6 Immature Gran % (Auto) 1.1 H Neut % (Auto) 75.7 H Lymph % (Auto) 14.5 L [place] % (Auto) 7.6 Eos % (Auto) 0.9 Baso % (Auto) 0.2 Lymph # (Auto) 2.3 [place] # (Auto) 1.2 Eos # (Auto) 0.1 Baso # (Auto) 0.0 Abs Immat Gran (auto) 0.18 H Absolute Neuts (auto) 12.0 H Absolute Nucleated RBC 0.000 Nucleated RBC % (auto) 0.0 ESR Sodium 139 Potassium 4.0 Chloride 105 Carbon Dioxide 24 Anion Gap 14 BUN 8 L Creatinine 0.63 Estim Creat Clear Calc 103.7 Estimated GFR > 60 Random Glucose 106 Lactic Acid Calcium 8.6 Total Bilirubin 0.4 AST 11 ALT 12 Alkaline Phosphatase 98 C-Reactive Protein 14.06 H Total Protein 6.7 Albumin 3.4 L Lipase 4 L Beta HCG, Quant < 2 Urine Color Urine Appearance Urine pH Ur Specific [place] Urine Protein Urine Glucose (UA) Urine Ketones Urine Blood Urine Nitrite Ur Leukocyte Esterase Urine RBC Urine WBC Ur Squamous Epith Cells Urine Bacteria Urine Mucus COVID-19 (YONNY) Negative COVID-19 Clin Com See Note 05/16/21 05/16/21 05/16/21 05:01 05:01 13:16 WBC RBC Hgb Hct MCV MCH MCHC RDW Plt Count MPV Immature Gran % (Auto) Neut % (Auto) Lymph % (Auto) [place] % (Auto) Eos % (Auto) Baso % (Auto) Lymph # (Auto) [place] # (Auto) Eos # (Auto) Baso # (Auto) Abs Immat Gran (auto) Absolute Neuts (auto) Absolute Nucleated RBC Nucleated RBC % (auto) ESR 94 H Sodium Potassium Chloride Carbon Dioxide Anion Gap BUN Creatinine Estim Creat Clear Calc Estimated GFR Random Glucose Lactic Acid 0.9 Calcium Total Bilirubin AST ALT Alkaline Phosphatase C-Reactive Protein Total Protein Albumin Lipase Beta HCG, Quant Urine Color YELLOW Urine Appearance CLEAR Urine pH 6.5 Ur Specific [place] 1.020 Urine Protein NEG Urine Glucose (UA) NEG Urine Ketones NEG Urine Blood 2+ H Urine Nitrite NEG Ur Leukocyte Esterase NEG Urine RBC 5-9 H Urine WBC 1-4 Ur Squamous Epith Cells TRACE Urine Bacteria NONE Urine Mucus TRACE COVID-19 (YONNY) COVID-19 Clin Com Imaging Radiology Impressions: ITS Impressions Chest X-Ray 05/16/21 02:10 IMPRESSION: Patchy multifocal airspace consolidation in both lungs, most concerning for multifocal pneumonia. Head CT 05/16/21 06:50 IMPRESSION: No acute intracranial process seen. Chronic pansinusitis with acute bilateral maxillary sinusitis. Mental Status Exam Mental Status Exam Patient Appearance: Appropriate (poor dentition ) Patient Orientation: Person, Place, Time and Situation Level of Consciousness: Awake and Appropriate Patient Behavior: Guarded and Cooperative Mood Description: Appropriate Affect Description: Constricted Thought Process: Goal Oriented Thought Content: positive for Goal Oriented Judgement: Fair Medications Medications Current Medications Acetaminophen (Acetaminophen 325 Mg Tablet) 650 mg PO Q6H PRN PRN Reason: Pain, Mild (Pain Scale 1-3) Last Admin: 05/16/21 16:17 Dose: 650 mg Documented by: Azithromycin (Azithromycin 500 Mg Tablet) 500 mg PO Q24H [facility] Last Admin: 05/17/21 12:13 Dose: 500 mg Documented by: Cefuroxime Axetil (Cefuroxime Axetil 500 Mg Tablet) 500 mg PO Q12H [facility] Last Admin: 05/17/21 12:13 Dose: 500 mg Documented by: Clonidine HCl (Clonidine Hcl 0.1 Mg Tablet) 0.1 mg PO TID PRN; Protocol PRN Reason: anxiety/restlessness Guaifenesin/Dextromethorphan (Guaifenesin Dm 100/10/5 Ml 5 Ml Syrup) 10 ml PO Q6H PRN PRN Reason: cough Nicotine (Nicotine 21 Mg Patch.Td24) 21 mg TRANSDERMA DAILY [facility] Last Admin: 05/17/21 12:13 Dose: 21 mg Documented by: Ondansetron HCl (Ondansetron Hcl 4 Mg/2 Ml Vial) 4 mg IVPUSH Q8H PRN PRN Reason: Nausea and Vomiting Pharmacy Consult (Consult Rx Perform Med Rec) 1 each MISCELLANE ONCE PRN PRN Reason: Consult order Sodium Chloride (0.9 % Sodium Chloride Flush 3 Ml Syringe) 3 ml IVFLUSH QSHIFT ALEXANDRO Last Admin: 05/17/21 09:15 Dose: Not Given Documented by: Allergies Allergies Allergy/AdvReac Type Severity Reaction Status Date / Time codeine [CODEINE] Allergy Unknown RASH Unverified 11/06/19 19:06 codeine Allergy Unknown hives Uncoded 03/31/16 00:00 Assessment & Plan Assessment & Plan (1) Opioid use disorder, severe, dependence: Status: Acute Code(s): F11.20 - Opioid dependence, uncomplicated Assessment and Plan: Continue methadone titration. Tomorrow to receive 40 mg. Recovery support nurse will be sending referral paperwork to [facility] is this is were patient wants to go once outpatient Will order HIV and hepatitis pain Follow-up in the morning If necessary after patient p.r.n. clonidine and hydroxyzine to assist with any anxiety or restlessness secondary to withdrawal I spent ___65___ minutes with the patient and/or on the patient floor today, greater than?50% of which was spent counseling/coordinating care. [facility] Social History Social History Alcohol intake: never Patient Tobacco Use Status: Current everyday Tobacco user Use of substances other than those prescribed or required for medical reasons: Yes Substance Use Type: Heroin Substance Use Frequency: Chronic Longstanding Last Used Substance: Just Prior to Admission Advance Directives: No Advance Directives Information Provided: Yes service: No Current occupational status: unemployed
[2021-05-17] MEDS: guaiFENesin DM 100/10/5 ML 5 ML SYRUP 10 ML PO (15:02)
[2021-05-17] MEDS: Acetaminophen 325 MG TABLET 650 MG PO (15:02)
--- NOTE | 2021-05-17 16:07 | HO.PM.IMPN ---
Subjective Subjective Date of Service: 05/18/21 Interval History: complaining of withdrawal symptoms feeling cold sweaty, nauseous, with generalized body ache, denies shortness of breath, no other acute issues overnight, lost IV site. Review of Systems Review of Systems: Yes all other systems are reviewed and are negative Physical Exam Vital Signs: Vital Signs: Last Vital Signs Temp 98.0 F 05/17/21 05:08 Pulse 64 05/17/21 05:08 Resp 16 05/17/21 05:08 BP 126/75 05/17/21 05:08 Pulse Ox 99 05/17/21 05:08 BMI result Body Mass Index 20.1 Const: Other: General resting comfortably, Mild distress to withdrawal symptoms. HEENT pupil equal round reactive to light and accommodation Neck no JVD. CVS? regular rate rhythm, Respiratory? bilateral rhonchi, no respiratory distress Gastrointestinal abdomen soft, nontender, bowel sounds audible, no guarding , no rigidity. Extremities no edema. Neuro nonfocal Skin no rash psych appropriate affect Objective Data Active Medications Acetaminophen (Acetaminophen 325 Mg Tablet) 650 mg PO Q6H PRN PRN Reason: Pain, Mild (Pain Scale 1-3) Last Admin: 05/17/21 15:02 Dose: 650 mg Documented by: MARCO ANTONIO Azithromycin (Azithromycin 500 Mg Tablet) 500 mg PO Q24H [facility] Last Admin: 05/17/21 12:13 Dose: 500 mg Documented by: MARCO ANTONIO Cefuroxime Axetil (Cefuroxime Axetil 500 Mg Tablet) 500 mg PO Q12H [facility] Last Admin: 05/17/21 12:13 Dose: 500 mg Documented by: MARCO ANTONIO Clonidine HCl (Clonidine Hcl 0.1 Mg Tablet) 0.1 mg PO TID PRN; Protocol PRN Reason: anxiety/restlessness Guaifenesin/Dextromethorphan (Guaifenesin Dm 100/10/5 Ml 5 Ml Syrup) 10 ml PO Q6H PRN PRN Reason: cough Last Admin: 05/17/21 15:02 Dose: 10 ml Documented by: MARCO ANTONIO Methadone HCl (Methadone Hcl 20 Mg/2 Ml Oral.Conc) 40 mg PO ONCE@0800 [facility] Stop: 05/18/21 08:01 Nicotine (Nicotine 21 Mg Patch.Td24) 21 mg TRANSDERMA DAILY [facility] Last Admin: 05/17/21 12:13 Dose: 21 mg Documented by: MARCO ANTONIO Ondansetron HCl (Ondansetron Hcl 4 Mg/2 Ml Vial) 4 mg IVPUSH Q8H PRN PRN Reason: Nausea and Vomiting Pharmacy Consult (Consult Rx Perform Med Rec) 1 each MISCELLANE ONCE PRN PRN Reason: Consult order Sodium Chloride (0.9 % Sodium Chloride Flush 3 Ml Syringe) 3 ml IVFLUSH QSHIFT [facility] Last Admin: 05/17/21 14:38 Dose: Not Given Documented by: MARCO ANTONIO Non-Admin Reason: No Access Trazodone HCl (Trazodone Hcl 50 Mg Tablet) 50 mg PO BEDTIME PRN PRN Reason: Sleep Labs CBC & Chem 7: 05/16/21 05:01 05/16/21 05:01 Microbiology Microbiology Results: Microbiology 05/16/21 05:01 Blood Culture - Preliminary Blood - Arterial No growth after 24 hours. 05/16/21 05:01 Blood Culture - Preliminary Blood - Arterial No growth after 24 hours. Assessment and Plan (1) Opioid use disorder, severe, dependence: Status: Acute (2) Pneumonia: Status: Acute Plan 30-year-old female patient with no significant past medical history presented to [facility] due to symptoms of worsening shortness of breath on and off fever generalized weakness cough productive of thick phlegm patient recently diagnosed to have influenza a infection workup revealed multifocal pneumonia patient will be admitted to [facility] with diagnosis of sepsis due to pneumonia and? heroin use disorder.. ?? Sepsis due to multifocal pneumonia ?? no further episodes of fever or tachycardia ?? on IV ceftriaxone and azithromycin, patient lost IV site therefore will transition antibiotics to by mouth Ceftin and azithromycin, re-attempt IV, continue supportive care with Tylenol and cough medication ?? follow CBC and CRP, blood cultures x2 negative times 24 hours, continue close clinical follow-up ? intractable headache CT head negative for intracranial pathology but showed pansinusitis and acute maxillary sinusitis ? continue antibiotic as above ? headache resolved ? severe opiate use disorder Noted to have significant withdrawal symptoms ? use heroin intranasally daily, obtained Addiction Team consult patient started on methadone and trazodone at bedtime for sleep continue clonidine for withdrawal symptoms ? code status full code ? DVT prophylaxis early ambulation ? patient will need inpatient hospitalization due to multifocal pneumonia, on antibiotics, ongoing withdrawal symptoms being followed by addiction team . Quality Stroke Does the patient have a stroke diagnosis?: No VTE Prior VTE?: No VTE Risk Level:: Medical - low VTE Device Contraindication: Treatment Not Indicated VTE Drug Contraindication: Treatment Not Indicated
[2021-05-17 17:52] VITALS: BP 123/67; PULSE 82; RESP 16; O2SAT 94
--- NOTE | 2021-05-18 | ECG_ITS ---
Test Reason : bradycardia/check for prolong QT Blood Pressure : / mmHG Vent. Rate : 068 BPM Atrial Rate : 068 BPM P-R Int : 126 ms QRS Dur : 082 ms QT Int : 406 ms P-R-T Axes : 055 067 060 degrees QTc Int : 431 ms Normal sinus rhythm Normal ECG When compared with ECG of 09-MAY-2021 14:22, Incomplete right bundle branch block is no longer Present Referred By: Cheryl Arias Electronically Signed By:DADA PERALTA
[2021-05-18] MEDS: guaiFENesin DM 100/10/5 ML 5 ML SYRUP 10 ML PO ×2 (03:45→13:27)
--- NOTE | 2021-05-18 03:59 | PC.NURSE ---
This RN assumed care at 1900. Patient was calm and cooperative and fell asleep. Woke up at 345 AM requesting methadone, was told it's too early, and instead received requested PRN cough medicine. Will continue to monitor.
[2021-05-18 05:31] VITALS: PULSE 51; RESP 23; O2SAT 96
[2021-05-18] MEDS: Acetaminophen 325 MG TABLET 650 MG PO ×3 (06:26→19:28)
[2021-05-18] MEDS: cloNIDine HCL 0.1 MG TABLET PO (07:16)
[2021-05-18] MEDS: Nicotine 21 MG PATCH.TD24 TRANSDERMA ×2 (08:02→19:28)
[2021-05-18] MEDS: methADONE HCl 20 MG/2 ML ORAL.CONC 40 MG PO (08:02)
--- NOTE | 2021-05-18 09:54 | MHC.RECOVRN ---
[facility] Referral has been sent. Pt will need last dose letter upon dc.
--- NOTE | 2021-05-18 10:57 | PC.NURSE ---
pt requesting methadone at 7:00am. pt notified that she cannot get methadone until 8am. Pt requesting clonidine to help with withdrawls. PRN given per request. pt medicated per mar at appropriate time. Pt offering no other complaints at this time. pt resting in the hospital bed. NSR-SB in the high 40s on the cardiac cath lab technologist. pt belongings and callbell within reach.
[2021-05-18 12:19] VITALS: BP 128/64; PULSE 47; RESP 15; O2SAT 98
[2021-05-18] MEDS: Azithromycin 500 MG TABLET PO (12:43)
--- NOTE | 2021-05-18 15:16 | HO.PM.IMPN ---
Subjective Subjective Date of Service: 05/19/21 Review of Systems General resting comfortably,? Mild distress to withdrawal symptoms. HEENT pupil equal round reactive to light and accommodation Neck no JVD. CVS? regular rate rhythm, Respiratory? bilateral rhonchi, no respiratory distress Gastrointestinal abdomen soft, nontender, bowel sounds audible, no guarding , no rigidity. Extremities no edema. Neuro nonfocal Skin no rash psych appropriate affect Physical Exam Vital Signs: Vital Signs: Last Vital Signs Temp 98.0 F 05/17/21 05:08 Pulse 47 L 05/18/21 12:19 Resp 15 05/18/21 12:19 BP 128/64 05/18/21 12:19 Pulse Ox 98 05/18/21 12:19 BMI result Body Mass Index 20.1 Objective Data Active Medications Acetaminophen (Acetaminophen 325 Mg Tablet) 650 mg PO Q6H PRN PRN Reason: Pain, Mild (Pain Scale 1-3) Last Admin: 05/18/21 13:27 Dose: 650 mg Documented by: MARCO ANTONIO Azithromycin (Azithromycin 500 Mg Tablet) 500 mg PO Q24H [facility] Last Admin: 05/18/21 12:43 Dose: 500 mg Documented by: MARCO ANTONIO Cefuroxime Axetil (Cefuroxime Axetil 500 Mg Tablet) 500 mg PO Q12H [facility] Last Admin: 05/18/21 12:43 Dose: 500 mg Documented by: MARCO ANTONIO Clonidine HCl (Clonidine Hcl 0.1 Mg Tablet) 0.1 mg PO TID PRN; Protocol PRN Reason: anxiety/restlessness Last Admin: 05/18/21 07:16 Dose: 0.1 mg Documented by: MARCO ANTONIO Guaifenesin/Dextromethorphan (Guaifenesin Dm 100/10/5 Ml 5 Ml Syrup) 10 ml PO Q6H PRN PRN Reason: cough Last Admin: 05/18/21 13:27 Dose: 10 ml Documented by: MARCO ANTONIO Nicotine (Nicotine 21 Mg Patch.Td24) 21 mg TRANSDERMA DAILY [facility] Last Admin: 05/18/21 08:02 Dose: 21 mg Documented by: MARCO ANTONIO Ondansetron HCl (Ondansetron Hcl 4 Mg/2 Ml Vial) 4 mg IVPUSH Q8H PRN PRN Reason: Nausea and Vomiting Pharmacy Consult (Consult Rx Perform Med Rec) 1 each MISCELLANE ONCE PRN PRN Reason: Consult order Sodium Chloride (0.9 % Sodium Chloride Flush 3 Ml Syringe) 3 ml IVFLUSH QSHIFT [facility] Last Admin: 05/18/21 07:11 Dose: Not Given Documented by: MARCO ANTONIO Non-Admin Reason: No Access Trazodone HCl (Trazodone Hcl 50 Mg Tablet) 50 mg PO BEDTIME PRN PRN Reason: Sleep Labs CBC & Chem 7: 05/16/21 05:01 05/16/21 05:01 Microbiology Microbiology Results: Microbiology 05/16/21 05:01 Blood Culture - Preliminary Blood - Arterial No growth after 48 hours. 05/16/21 05:01 Blood Culture - Preliminary Blood - Arterial No growth after 48 hours. Assessment and Plan (1) Opioid use disorder, severe, dependence: Status: Acute (2) History of substance abuse: Status: Acute (3) Pneumonia: Status: Acute Plan 30-year-old female patient with no significant past medical history presented to [facility] due to symptoms of worsening shortness of breath on and off fever generalized weakness cough productive of thick phlegm patient recently diagnosed to have influenza a infection workup revealed multifocal pneumonia patient will be admitted to [facility] with diagnosis of sepsis due to pneumonia and? heroin use disorder.. ?? Sepsis due to multifocal pneumonia ?? no further episodes of fever or tachycardia persistent shortness of breath and cough ?? on ceftin and azithromycin, continue supportive care with Tylenol and cough medication ?? CBC and CRP ordered, unable to draw due to poor IV access, ? blood cultures x2 negative times 48 hours, continue close clinical follow-up ? intractable headache CT head negative for intracranial pathology but showed pansinusitis and acute maxillary sinusitis ? continue antibiotic as above ? bradycardia likely related to methadone, will obtain EKG, follow QT ? severe opiate use disorder ? Noted to have? persistent withdrawal symptoms ? use heroin intranasally daily,? obtained Addiction Team consult patient started on methadone dose being up titrated,on trazodone at bedtime for sleep, continue clonidine prn for withdrawal symptoms ? code status full code ? DVT prophylaxis early ambulation ? patient will need inpatient hospitalization due to multifocal pneumonia, on antibiotics, ongoing withdrawal symptoms, and bradycardia Quality Stroke Does the patient have a stroke diagnosis?: No VTE Prior VTE?: No VTE Risk Level:: Medical - low VTE Device Contraindication: Treatment Not Indicated VTE Drug Contraindication: Treatment Not Indicated
[2021-05-18 16:25] VITALS: BP 123/63; PULSE 83; TEMP 36.7; O2SAT 96
--- NOTE | 2021-05-18 17:29 | P.PNADD_ITS ---
Subjective Subjective Date of Service: 05/18/21 Reason For Visit: Pneumonia Interim History: Patient seen in follow-up. Received 40 mg of methadone this morning with good effect. Patient napping but easily awakened. Denies any withdrawal symptoms. Discussed further titration, initially patient hesitant to further increase then agreeable to additional 5 mg increase. Recovery support nurse working on referral to [facility]. Review of Systems Medical Review of Systems: unchanged Mental Status Exam Mental Status Exam Patient Appearance: Appropriate Level of Consciousness: Drowsy (Sleepy) Patient Behavior: Appropriate and Cooperative Mood Description: Appropriate Patient Cognition Impaired: No Judgement: Good Diagnostics Vital Signs (24Hr): Vital Signs - 24 hr 05/17/21 17:52 05/18/21 05:31 05/18/21 12:19 Temperature Pulse Rate 82 51 47 L Respiratory Rate 16 23 H 15 Blood Pressure 123/67 128/64 Pulse Oximetry 94 96 98 05/18/21 16:25 Temperature 98.1 F Pulse Rate 83 Respiratory Rate Blood Pressure 123/63 Pulse Oximetry 96 BMI result Body Mass Index 20.1 Labs Results: 05/16/21 05:01 05/16/21 05:01 Imaging Radiology Impressions: ITS Impressions Chest X-Ray 05/16/21 02:10 IMPRESSION: Patchy multifocal airspace consolidation in both lungs, most concerning for multifocal pneumonia. Head CT 05/16/21 06:50 IMPRESSION: No acute intracranial process seen. Chronic pansinusitis with acute bilateral maxillary sinusitis. Medications Medications Current Medications Acetaminophen (Acetaminophen 325 Mg Tablet) 650 mg PO Q6H PRN PRN Reason: Pain, Mild (Pain Scale 1-3) Last Admin: 05/18/21 13:27 Dose: 650 mg Documented by: Azithromycin (Azithromycin 500 Mg Tablet) 500 mg PO Q24H [facility] Last Admin: 05/18/21 12:43 Dose: 500 mg Documented by: Cefuroxime Axetil (Cefuroxime Axetil 500 Mg Tablet) 500 mg PO Q12H [facility] Last Admin: 05/18/21 12:43 Dose: 500 mg Documented by: Clonidine HCl (Clonidine Hcl 0.1 Mg Tablet) 0.1 mg PO TID PRN; Protocol PRN Reason: anxiety/restlessness Last Admin: 05/18/21 07:16 Dose: 0.1 mg Documented by: Guaifenesin/Dextromethorphan (Guaifenesin Dm 100/10/5 Ml 5 Ml Syrup) 10 ml PO Q6H PRN PRN Reason: cough Last Admin: 05/18/21 13:27 Dose: 10 ml Documented by: Methadone HCl (Methadone Hcl 20 Mg/2 Ml Oral.Conc) 45 mg PO ONCE ONE Stop: 05/19/21 08:01 Nicotine (Nicotine 21 Mg Patch.Td24) 21 mg TRANSDERMA DAILY [facility] Last Admin: 05/18/21 08:02 Dose: 21 mg Documented by: Ondansetron HCl (Ondansetron Hcl 4 Mg/2 Ml Vial) 4 mg IVPUSH Q8H PRN PRN Reason: Nausea and Vomiting Pharmacy Consult (Consult Rx Perform Med Rec) 1 each MISCELLANE ONCE PRN PRN Reason: Consult order Sodium Chloride (0.9 % Sodium Chloride Flush 3 Ml Syringe) 3 ml IVFLUSH QSHIFT [facility] Last Admin: 05/18/21 15:51 Dose: Not Given Documented by: Trazodone HCl (Trazodone Hcl 50 Mg Tablet) 50 mg PO BEDTIME PRN PRN Reason: Sleep Allergies Allergies Allergy/AdvReac Type Severity Reaction Status Date / Time codeine [CODEINE] Allergy Unknown RASH Unverified 11/06/19 19:06 codeine Allergy Unknown hives Uncoded 03/31/16 00:00 Assessment & Plan Assessment & Plan (1) Opioid use disorder, severe, dependence: Status: Acute Code(s): F11.20 - Opioid dependence, uncomplicated Assessment and Plan: * Methadone 45 mg tomorrow morning * Recovery support nurse to follow up with [facility]qeuz information * Take home Narcan should be provided at time of discharge I spent _15 minutes with the patient and/or on the patient floor today, greater than?50% of which was spent counseling/coordinating care.
[2021-05-18 20:01] VITALS: BP 110/63; PULSE 78; TEMP 36.8; O2SAT 95
[2021-05-19 00:52] VITALS: BP 106/64; PULSE 80; TEMP 36.9; O2SAT 97
[2021-05-19] MEDS: 0.9 % Sodium Chloride Flush 3 ML SYRINGE IVFLUSH (01:13)
[2021-05-19] MEDS: guaiFENesin DM 100/10/5 ML 5 ML SYRUP 10 ML PO (01:13)
[2021-05-19 04:05] VITALS: BP 102/68; PULSE 81; TEMP 36.9; O2SAT 95
[2021-05-19 07:33] VITALS: BP 94/61; PULSE 60; RESP 12; O2SAT 97
[2021-05-19] MEDS: Nicotine 21 MG PATCH.TD24 TRANSDERMA (08:13)
[2021-05-19] MEDS: methADONE HCl 20 MG/2 ML ORAL.CONC 45 MG PO (08:14)
--- NOTE | 2021-05-19 11:16 | MHC.CM.PN ---
PT WILL DC WITH NEW [facility] SERVICES ARRANGED BY CARDIOLOGY TEACHER.
--- NOTE | 2021-05-19 11:27 | PM.DS ---
DS: Providers Provider Date of Service: 05/19/21 Date of admission: 05/16/21 09:32 Primary care physician: Deanna Lopez MD Consults: 05/17/21 00:46 Addiction Medicine Routine Consulting Provider: Maria Esther Strickland Reason for consultation: opiate dependence 05/17/21 08:13 Addiction Medicine Routine Consulting Provider: Maria Esther Strickland Reason for consultation: opiod use Has provider been notified: No DS: Diagnosis Discharge Diagnosis (1) Opioid use disorder, severe, dependence: Status: Acute (2) History of substance abuse: Status: Acute (3) Pneumonia: Status: Acute DS: Summary Hospital Course Hospital Course: Chief Complaint:? shortness of breath A 10-year-old female patient recently diagnosed to have influenza on May 09 presented to [place] ED with symptoms of persistent shortness of breath worse with exertion, associated with? cough productive of thick yellow phlegm, with associated fees fever and chills on and off and headache located on top of her head pressure like 7/10 at its worst, also complaining of generalized body ache, weakness no taste in food, also complained of decreased by mouth intake with nausea and several episodes of vomiting denies abdominal pain no diarrhea, denies chest pain, no palpitation. ?in ED workup showed bilateral infiltrate suggestive of multi focal pneumonia, COVID test is negative, noted to have elevated WBC count and a fever of 101.6, with elevated CRP 14.06, patient treated in the emergency room with IV azithromycin, ceftriaxone, IV fluid and 1 dose of methadone was given with history of intranasal of heroin use, patient admits of using 10 bags of heroin daily previously she was using IV drugs, patient denies recent history of travel. hospital course 30-year-old female patient with no significant past medical history presented to [facility] due to symptoms of worsening shortness of breath on and off fever generalized weakness cough productive of thick phlegm patient recently diagnosed to have influenza a infection workup revealed multifocal pneumonia patientadmitted to [facility] with diagnosis of sepsis due to pneumonia and? severe opiod use disorder. Sepsis due to multifocal pneumonia, patient admitted to medical floor treated with intravenous ceftriaxone azithromycin, cough medication and analgesic, all symptoms of tachycardia fever and shortness of breath improved continue to have mild intermittent cough, unable to follow repeat labs due to poor IV access, since clinically patient is doing well will be discharged home on by mouth antibiotics and cough medication blood cultures x2 were negative in 48 hours. ?? intractable headache CT head negative for intracranial pathology but showed pansinusitis and acute maxillary sinusitis , patient treated with antibiotic as above headache has resolved. Tobacco use disorder patient has been placed on nicotine patch and strongly recommend to abstain from smoking. ? Bradycardia likely related to methadone, EKG showed normal QT and stable ventricular rate. Severe opiate use disorder, noted to have significant withdrawal symptoms was seen by Addiction Team patient has been placed on methadone recommended outpatient follow-up at [facility]. ? Time Spent with Patient Time attestation: Total time spent providing and/or coordinating discharge services: Discharge coordination time: Greater than 30 minutes Quality: Stroke Does the patient have a stroke diagnosis?: No Physical Exam Vital Signs: Vital Signs: Last Vital Signs Temp 98.4 F 05/19/21 04:05 Pulse 60 05/19/21 07:33 Resp 12 05/19/21 07:33 BP 94/61 05/19/21 07:33 Pulse Ox 97 05/19/21 07:33 BMI result Body Mass Index 20.1 Const: Other: General resting co mfortably,? Mild d istress to withdra wal symptoms. HEEN T pupil equal roun d reactive to ligh t and accommodatio n Neck no JVD. CVS ? regular rate rhy thm, Respiratory? Clear to auscult ationi, no respira tory distress Huan rointestinal abdom en soft, nontender , bowel sounds aud ible, no guarding , no rigidity. Ext remities no edema. Neuro nonfocal ps ych appropriate af fect DS: Data Data Completed and Pending Labs on day of discharge: Preliminary micro results at discharge 05/16/21 05:01 Blood Culture - Preliminary Blood - Arterial No growth after 48 hours. 05/16/21 05:01 Blood Culture - Preliminary Blood - Arterial No growth after 48 hours. Discharge Plan Discharge Patient Disposition: Home, Self-Care Discharge Diagnosis: sepsis due to multifocal pneumonia severe opiate use disorder bradycardia Referrals: Deanna Lopez MD [Primary Care Provider] - 1 Week Discharge Medications: New dextromethorphan-guaifenesin 10-100 mg/5 mL Syrup 10 ml PO Q6H PRN (Reason: cough) Qty: 237 0RF nicotine 21 mg/24 hr Patch 24 Hour 21 mg transdermal DAILY Qty: 30 0RF cefuroxime axetil 500 mg Tablet 500 mg PO Q12H Qty: 6 0RF azithromycin 500 mg Tablet 500 mg PO Q24H Qty: 2 0RF Discharge Orders: Discharge Order (Routine); Ordered 05/19/21 Ordered By: Cheryl Arias Diet: advance to usual diet Activity on Discharge: As tolerated Stand Alone Forms: Patient Portal Discharge page Care Plan Goals: pneumonia shortness of breath and cough has improved take antibiotic as prescribed to finish course of antibiotic strongly recommend to abstain from illicit drug use, use nicotine patch for tobacco withdrawal. Health Concerns: opiate use disorder follow up with [facility] for methadone Plan of Treatment: outpatient follow-up with primary care physician and therapy. Assessment: per discharge summary
--- NOTE | 2021-05-19 16:23 | MHC.RECOVRN ---
Met with pt prior to d/c to discuss d/c plan. Pts mother has been working with pt to go to [facility] LOC. Pt requesting [employer], pt informed [facility] is only taking from their ATS at this time. Pt will be picked up by mother and will present to [facility] tomorrow morning. Pt feels safe and agreeable to this plan. Provided with t/w contact information if needed. Discussed with provider and RN.
== END 2021-05-19 11:48 | disposition home or self-care (01) | DRG 720 ==
LOC: HO.ED 05:54 → HO.EDOVER 09:52
PROVIDERS: Admitting Provider Hospitalist; Emergency Provider Emergency Medicine Emergency Medical Services; PCP Family Medicine; Visit Provider Hospitalist
DX: A41.9 Sepsis, unspecified organism (principal); J18.9 Pneumonia, unspecified organism; J32.4 Chronic pansinusitis; F11.23 Opioid dependence with withdrawal; J01.00 Acute maxillary sinusitis, unspecified; Z88.5 Allergy status to narcotic agent; F17.210 Nicotine dependence, cigarettes, uncomplicated; Z71.6 Tobacco abuse counseling; Z20.822 Contact with and (suspected) exposure to COVID-19; Z79.899 Other long term (current) drug therapy
CPT/HCPCS: 36415; 70450; 71046; 80053; 81001; 83605; 83690; 84702; 85025; 85652; 86140; 87040; 87635; 93005; 96361; 96365; 96375; 99285; J0456; J0696; J1200; J1885; J2765; J3370

== ENCOUNTER 2021-10-09 12:07 | Emergency (ER) | payer OTHER, SELFPAY ==
[2021-10-09 14:36] VITALS: BP 123/77; PULSE 62; RESP 14; TEMP 36.3; O2SAT 98; BMI 18.3
--- NOTE | 2021-10-09 15:25 | ED.PSYCH ---
HPI - Psych General Chief Complaint: Psychiatric Symptoms Stated Complaint: L toe wound, Crisis SI thoughts? Time Seen by Provider: 10/09/21 15:06 Source: patient Limitations: no limitations History of Present Illness HPI Narrative: This is a 31 years old female with history of opioid use disorder and cocaine use disorder presented to emergency department complaining of depression SI. Also she is complaining of superficial laceration of the left big toe,she states she was wearing flip flop and injured left big toe against a courb MD complaint: suicidal ideation and feels depressed Onset (ago): day(s) (2) Duration: constant History of same: Yes Relieving factors: none Exacerbating factors: none Context: recent drug abuse Associated psychiatric symptoms: suicidal ideation Associated symptoms: denies other symptoms Related Data Previous Rx's Medication Instructions Recorded azithromycin 500 mg tablet 500 mg PO Q24H #2 tabs 05/19/21 cefuroxime axetil 500 mg tablet 500 mg PO Q12H #6 tabs 05/19/21 dextromethorphan-guaifenesin 10 10 ml PO Q6H PRN cough #237 mL 05/19/21 mg-100 mg/5 mL oral syrup nicotine 21 mg/24 hr daily 21 mg transdermal DAILY #30 ea 05/19/21 transdermal patch Allergies Allergy/AdvReac Type Severity Reaction Status Date / Time codeine [CODEINE] Allergy Unknown RASH Unverified 11/06/19 19:06 codeine Allergy Unknown hives Uncoded 03/31/16 00:00 Review of Systems Constitutional: Constitutional: Reports no additional constitutional complaints Cardiovascular: Cardiovascular: Reports no additional cardiovascular complaints Respiratory: Respiratory: Reports no additional respiratory complaints Gastrointestinal: Gastrointestinal: Reports no additional gastrointestinal complaints Psychiatric: Psychiatric: Reports as per HPI, Reports anxiety, Reports depression and Reports difficulty concentrating PMFSH Past Medical History [facility] Narrative: Substance abuse, opioid use disorder, cocaine use disorder Medical History (Updated 10/09/21 @ 15:37 by Willian Zuñiga MD) History of substance abuse Social History Social History Alcohol intake: never Patient Tobacco Use Status: Current everyday Tobacco user Substance Use Type: Heroin Advance Directives: Yes Advance Directives on File: Yes Advance Directives Date on File: 05/16/21 service: No Current occupational status: unemployed Physical Exam Vital Signs: Vital Signs: Last Vital Signs Temp 97.4 F 10/09/21 14:36 Pulse 62 10/09/21 14:36 Resp 14 10/09/21 14:36 BP 123/77 10/09/21 14:36 Pulse Ox 98 10/09/21 14:36 O2 Del Method 10/09/21 14:36 BMI result Body Mass Index 18.3 Const: General: cooperative and anxious Nutritional Appearance: average body habitus Orientation/consciousness: oriented to person HEENT: Head: Yes normal to inspection Face and sinus: Yes normal facial exam Mouth: Normal oral and palatal mucosa present Neck: Neck: Yes normal visual inspection and Yes full ROM Chest: Chest palpation & inspection: normal inspection of the chest Resp: Effort & Inspection: normal respiratory effort Auscultation: clear to auscultation bilaterally Cardio: Jugular venous distension: no JVD Rate: regular rate Rhythm: regular rhythm GI: Inspection: Yes normal to inspection Palpation (GI): Soft to palpation, not firm, nontender and no guarding Skin: General skin exam: no rashes or lesions noted and elasticity normal Lesions: no lesions Rashes: no rashes Neuro: General: oriented to person Extrem: Other: Left big toe distal phalanx there is a superficial laceration flap like 2 cm in length Psych: Appearance: disheveled Speech and movement: Clear speech present Affect: Anxious affect present Attitude: cooperative Thought process: Normal thought process present Course Reevaluation(s) Reevaluation #1: Crisis eval pending pt will be signed out to Dr Smith Procedures Laceration Laceration 1: Site: other (BIG TOE ) Side (If applicable): left Size (cm): 2 Description: flap and irregular Depth: simple, single layer Skin layer closed with: other (Skin adevise) Discharge Plan Discharge Clinical Impression: Depression, Opioid use disorder, severe, dependence, Laceration of toe of left foot Patient Disposition: Still a Patient Prescriptions: No Action dextromethorphan-guaifenesin 10-100 mg/5 mL Syrup 10 ml PO Q6H PRN (Reason: cough) Qty: 237 0RF nicotine 21 mg/24 hr Patch 24 Hour 21 mg transdermal DAILY Qty: 30 0RF cefuroxime axetil 500 mg Tablet 500 mg PO Q12H Qty: 6 0RF azithromycin 500 mg Tablet 500 mg PO Q24H Qty: 2 0RF
--- NOTE | 2021-10-09 15:48 | PC.NURSE ---
attempted to clean and dress right great toe lac, patient stated she did not want it done at this time. Resting
[2021-10-09 15:56] LABS: COVID-19 Test Negative (Negative)
[2021-10-09 18:16] LABS: UPreg QC Valid YES; Urine Pregnancy NEGATIVE (NEGATIVE)
[2021-10-09 18:29] LABS: Amphetamine Screen Urine Not Detected (Not Detect); Barbiturates, Urine Not Detected (Not Detect); Benzodiazepines Screen Urine POSITIVE (Not Detect); Cannabinoid Screen Urine Not Detected (Not Detect); Cocaine Screen Urine POSITIVE (Not Detect); Fentanyl, urine POSITIVE (Not Detect); Opiate Screen Urine POSITIVE (Not Detect); Phencyclidine Screen Urine Not Detected (Not Detect)
[2021-10-09 18:56] VITALS: BP 126/75; PULSE 102; RESP 18
[2021-10-09 19:56] VITALS: BP 115/53; PULSE 86; RESP 17; O2SAT 96
[2021-10-09 21:27] VITALS: BP 118/79; PULSE 111; TEMP 36.4; O2SAT 98
[2021-10-09] MEDS: LORazepam 1 MG TABLET PO (21:31)
--- NOTE | 2021-10-10 06:27 | PC.NURSE ---
Patient slept through the night, no distress observed/reported, Ativan 1mg PO administered at 2131 with + effect, patient was evaluated by BHN, disposition pending, patient will be re-evaluated by BHN, VSS, behavior appropriate and non concerning, patient is currently not on any medication, will continue to monitor.
[2021-10-10 06:46] VITALS: BP 128/74; PULSE 63; RESP 16; O2SAT 99
[2021-10-10 06:51] VITALS: TEMP 37.7
[2021-10-10] MEDS: LORazepam 1 MG TABLET PO ×2 (08:41→12:50)
--- NOTE | 2021-10-10 12:49 | MHC.RECOVRN ---
Informed by CARE Team pt is interested in ATS. Pt made aware that neither [facility] nor [facility] have beds available, pt declined referrals to other facilities. Discussed presenting as a walk in to [facility] tomorrow morning. Denies other questions or concerns. RN aware.
== END 2021-10-10 14:34 | disposition home or self-care (01) ==
PROVIDERS: Emergency Provider Emergency Medicine
DX: S91.112A Laceration without foreign body of left great toe without damage to nail, initial encounter (principal); F33.1 Major depressive disorder, recurrent, moderate; F11.29 Opioid dependence with unspecified opioid-induced disorder; X58.XXXA Exposure to other specified factors, initial encounter; Y93.9 Activity, unspecified; Y92.9 Unspecified place or not applicable; Y99.9 Unspecified external cause status; Z20.822 Contact with and (suspected) exposure to COVID-19; Z79.899 Other long term (current) drug therapy
CPT/HCPCS: 12001; 80307; 81025; 87635; 99285

== ENCOUNTER 2023-03-19 15:30 | Emergency (ER) | payer OTHER, SELFPAY ==
[2023-03-19 15:44] VITALS: BP 152/92; PULSE 114; RESP 16; TEMP 36.9; O2SAT 97; BMI 19.8
--- NOTE | 2023-03-19 15:44 | ED_ITS ---
HPI - General Adult General Chief complaint: Dental/Oral Stated complaint: tooth pain Related Data Home Medications Medication Instructions Recorded Confirmed No Known Home Meds 10/09/21 10/09/21 Allergies Allergy/AdvReac Type Severity Reaction Status Date / Time codeine [CODEINE] Allergy Unknown RASH Verified 03/19/23 15:43 codeine Allergy Unknown hives Uncoded 03/19/23 15:43 [facility] Past Medical History Medical History (Updated 03/20/23 @ 17:25 by BENI Colvin) History of substance abuse Social History Social History Alcohol intake: never Patient Tobacco Use Status: Current everyday Tobacco user Substance Use Type: Crack/Cocaine and Opiates Advance Directives: Yes Advance Directives on File: Yes Advance Directives Date on File: 05/16/21 service: No Current occupational status: unemployed Physical Exam ED Vital Signs: BMI result Body Mass Index 19.8 Course Course Course Narrative: RME:?32 year old female with pmhx significant for opioid use disorder a pneumonia here for evaluation of bleeding gums x2 hours. Reports spontaneous bleeding of right upper gums 2 hours ago that has continued. she tried to make an appointment with dentist today however was told to come to the ED for abx. denies trauma to the face/ teeth. denies broken tooth. denies hx of blood or clotting disorders. PE: poor dentition with multiple carries and missing teeth. bleeding gums noted to the right upper cuspid and lateral incisors. no obvious periapical abscess. No palpable fluctuance. No expressible discharge. Tender to palpation. Plan for basic labs and clotting factors. Full HPI, ROS and PE to be performed by the primary ED provider. Reevaluation(s) Reevaluation #1: Patient left the emergency department without completing treatment. Medical Decision Making Lab Data 03/19/23 16:00 03/19/23 16:00 Labs: Lab Results 03/19/23 Range/Units 16:00 WBC 9.5 (4.8-10.8) X10*3/uL RBC 3.93 L (4.20-5.50) X10*6/uL Hgb 12.1 (12.0-16.0) g/dl Hct 34.5 L (37.0-47.0) % MCV 87.8 (80.0-98.0) fL MCH 30.8 (27.0-33.0) pg MCHC 35.1 H (31.0-35.0) g/dl RDW 13.1 (11.0-16.0) % Plt Count 271 (160-400) X10*3/uL MPV 11.0 (9.4-12.3) fL Immature Gran % (Auto) 1.0 H (0.0-0.4) % Neut % (Auto) 74.8 H (45-73) % Lymph % (Auto) 16.0 L (20-40) % Briscoe % (Auto) 5.9 (2-11) % Eos % (Auto) 1.6 (0-4) % Baso % (Auto) 0.7 (0-2) % Lymph # (Auto) 1.5 (1.2-4.9) X10*3/uL Briscoe # (Auto) 0.6 (0.1-1.2) X10*3/uL Eos # (Auto) 0.2 (0.0-0.4) X10*3/uL Baso # (Auto) 0.1 (0.0-0.2) X10*3/uL Abs Immat Gran (auto) 0.09 H (0.00-0.03) X10*3/uL Absolute Neuts (auto) 7.1 (2.0-8.3) x10*3/uL Absolute Nucleated RBC 0.000 (0.0-0.012) X10*3/uL Nucleated RBC % (auto) 0.0 (0.0-0.2) /100WBC PT 11.2 (11.1-13.3) SEC INR 0.9 (0.9-1.1) APTT 31.8 (26.0-36.4) SEC Sodium 138 (135-145) mmol/L Potassium 3.9 (3.3-5.1) mmol/L Chloride 107 (96-108) mmol/L Carbon Dioxide 22 (22-29) mmol/L Anion Gap 13 (12-20) BUN 8 L (9-16) mg/dL Creatinine 0.67 (0.5-1.4) mg/dL Estim Creat Clear Calc 97.5 Estimated GFR > 60 Random Glucose 97 (60-115) mg/dL Calcium 9.4 D (8.4-10.2) mg/dL Magnesium 2.3 (1.6-2.6) mg/dL Discharge Plan Discharge Clinical Impression: Pain due to dental caries, Bleeding gums Patient Disposition: Left W/O Completing Treatment Prescriptions: No Action No Known Home Meds Discharge Date/Time: 03/19/23 19:29
[2023-03-19 16:03] LABS: MANUAL DIFF FLAG NO
--- OUTSIDE RECORDS SUMMARY | 2023-03-19 16:04 | XMS_ITS | Continuity of Care Document ---
Author Name Unknown Organization [facility] Address [address] [place] [id number]- Care Team Providers Care Venetian Blind Machine Operator Name Role Phone Lenore Gavin Primary Care Physician Encounter [facility] Date(s): 07/11/22 - 08/10/22 [facility] [address] [address]- Attending Physician: Edwar Manuel Admitting Physician: AdmtrEdwar Referring Physician: Admtr, Ar8 Allergies, Adverse Reactions, Alerts No Known Medication Allergies Immunizations Given and Recorded Vaccine Date Status Refusal Reason [id number] bivalent booster vax 03/04/22 Recorded tetanus/diphtheria/pertussis, acel(Tdap) 08/04/20 Given tetanus/diphtheria/pertussis, acel(Tdap) 03/07/16 Recorded tetanus/diphtheria/pertussis, acel(Tdap) 11/17/11 Recorded SARS-CoV-2 (COVID-19) mRNA-1273 vaccine 08/04/20 R ecorded pneumococcal 23-valent vaccine 04/04/16 Recorded influenza virus vaccine, inactivated 04/04/16 Jay rded influenza virus vaccine, inactivated 11/25/13 Jay rded influenza virus vaccine, inactivated 11/17/11 Jay rded diphtheria/tetanus/pertussis, acel(DTaP) 04/04/16 Recorded diphtheria/tetanus/pertussis, acel(DTaP) 07/16/96 Recorded Meningococcal Conjugate Vaccine 12/16/07 Recorded Human Papillomavirus Vaccine 09/06/06 Recorded Human Papillomavirus Vaccine 06/04/06 Recorded tetanus-diphtheria toxoids (Td) 10/13/03 Recorded Measles/Mumps/Rubella Virus Vaccine 07/16/96 Recor ded Measles/Mumps/Rubella Virus Vaccine 10/07/92 Recor ded hepatitis B pediatric vaccine 07/02/95 Recorded hepatitis B pediatric vaccine 03/16/93 Recorded hepatitis B pediatric vaccine 02/16/93 Recorded Medications Abilify 5 mg oral tablet 5 mg, 1, tablet, By Mouth, Daily, Refills 0, Maintenance, 04/07/22 9:34:00 EST, Partial fill upon patient request if the prescription is for a schedule II opioid drug. Start Date: 04/07/22 Status: Ordered Aripiprazole 10 mg, Refills 0, Maintenance, 02/22/22 9:41:00 EST, Partial fill upon patient request if the prescription is for a schedule II opioid drug. Start Date: 02/22/22 Status: Ordered Diflucan 150 mg oral tablet 1 tablet = 150 mg, By Mouth, Once, may repeat dose after 72 hrs if no improvement., # 2 tablet, 0 Refills, Soft Stop, 02/22/22 10:09:00 EST, Tablet, [facility], Partial fill upon patient request if the prescription is for a schedule II o... Start Date: 02/22/22 Status: Ordered Sublocade 300 mg/1.5 mL subcutaneous solution, extended release 0 Refills, Maintenance, 02/22/22 9:41:00 EST, Partial fill upon patient request if the prescriptionis for a schedule II opioid drug. Start Date: 02/22/22 Status: Ordered Problem List Condition Confirmation Course Effective Dates Status H ealth Status Informant Anxiety Confirmed Active Chronic tension headache Confirmed Active Migraines Confirmed Active Polysubstance abuse Confirmed Active PTSD (post-traumatic stress disorder) Confirmed Active Major depression, recurrent Confirmed Active Seasonal allergies Confirmed Active Smoking Confirmed Active Social History Social History Type Response Tobacco Use: 4 or less cigar ettes(less than 1/4 pack)/day in last 30 days. Type: Cigarettes. Started at age: 19 Years. Sex Patient Care team information Care Team Personnel Name: Lenore Gavin Position: S Associate Professional Member Role: PCP Address: Address: [address] [place] [address] [place] [address]- Care Team Related Persons Name: ADONAY CHEW Address: home [address] [place] [id number] Name: BEKAH CHEW Address: [address] [place], [place] [id number]
--- OUTSIDE RECORDS SUMMARY | 2023-03-19 16:04 | XMS_ITS | Continuity of Care Document ---
Author Name Unknown Organization [facility] Address [address] [place] [address]- Care Team Providers Care Subsystems Engineer Name Role Phone Not on Staff, PCP Primary Care Physician Unavail able [place]counter [facility] Date(s): 06/30/20 - 06/30/[address] [address]- Discharge Disposition: A-D/C Walkout Attending Physician: Not on Staff, Attending MD Admitting Physician: Not on Staff, Admitting MD Referring Physician: Not on Staff, Referring MD Vital Signs Most recent to oldest [Reference Range]: 1 2 Oxygen Saturation [94-100 %] 100 % (06/30/20 10:12 PM) Pulse Rate [55-90 bpm] 51 bpm *L* (06/30/20 10:12 PM) Blood Pressure [90-138/55-84 mm Hg] 180/ 102mm Hg *H* (06/30/20 10:12 PM) 182/105mm Hg *H* (06/30/20 10:12 PM) Respiratory Rate [16-30 br/min] 18 br/mi n (06/30/20 10:12 PM) Temperature [96.8-100.4 DegF] 97.7 DegF (06/30/20 10:12 PM) Mode of Delivery (Oxygen) Room air (06/30/20 10:12 PM) Blood pressure sites Arm, left (06/30/20 10:12 PM) Arm, left (06/30/20 10:12 PM) Temperature Route Oral (06/30/20 10:12 PM)
--- OUTSIDE RECORDS SUMMARY | 2023-03-19 16:04 | XMS_ITS | Continuity of Care Document ---
Author Name Unknown Organization [facility] Address [address] [place] [address]- Care Team Providers Care Driller Brake Lining Name Role Phone Jerry ARCHER, Jade Primary Care Physician Encounter [facility] [place] Date(s): 09/08/20 - 10/08/20 [facility] [address] [place], [place] [address] Attending Physician: Edwar Manuel Admitting Physician: Edwar Manuel Referring Physician: AdmtrEdwar Allergies, Adverse Reactions, Alerts No Known Medication Allergies Immunizations Given and Recorded Vaccine Date Status Refusal Reason tetanus/diphtheria/pertussis, acel(Tdap) 08/04/20 Given Medications omeprazole 20 mg oral enteric coated capsule 1 capsule = 20 mg, By Mouth, Daily, take in morning on empty stomach 30min before breakfast, # 30 capsule, 5 Refills, Maintenance, 08/04/20 10:51:00 EDT, EC Capsule, [facility], Partial fill upon patient request if the prescription is fo... Start Date: 08/04/20 Stop Date: 01/31/21 Status: Ordered ZyrTEC 10 mg oral tablet 1 tablet = 10 mg, By Mouth, Daily, # 30 tablet, 2 Refills, Maintenance, 07/12/20 14:38:00 EDT, Tablet, [id number], Partial fill upon patient request if the prescription is for a schedule II opioid drug. Start Date: 07/12/20 Stop Date: 10/10/20 Status: Ordered Problem List Condition Effective Dates Status Health Status Inform ant Anxiety(Confirmed) Active Chronic tension headache(Confirmed) Active Migraines(Confirmed) Active Polysubstance abuse(Confirmed) Active PTSD (post-traumatic stress disorder)(Confirmed) Active Major depression, recurrent(Confirmed) Active Seasonal allergies(Confirmed) Active Smoking(Confirmed) Active Social History Social History Type Response Smoking Status Never (less than 100 in lifetime);10 or more cigarettes (1/2 pack or more)/day in last 30 days entered on: 07/12/20 Sex
--- OUTSIDE RECORDS SUMMARY | 2023-03-19 16:04 | XMS_ITS | Continuity of Care Document ---
Author Name Unknown Organization [facility] Address [address] [place] [address]- Care Team Providers Care Clinical Appeals Rn Name Role Phone Jerry ARCHER, Jade Primary Care Physician [phone] Encounter [facility] Date(s): 08/09/20 - 09/08/20 [facility] [address] [place] [address]- Allergies, Adverse Reactions, Alerts No Known Medication [...]
--- OUTSIDE RECORDS SUMMARY | 2023-03-19 16:04 | XMS_ITS | Continuity of Care Document ---
Author Name Unknown Organization [facility] Address [address] [place] [address]- Care Team Providers Care Heating Plant Superintendent Name Role Phone Jerry ARCHER, Jade Primary Care Physician [id number] Date[facility] 08[facility]11[facility]20 [facility] [address] [place] [address]- Encounter Diagnosis GERD (gastroesophageal reflux disease)(Discharge Diagnosis) - 08/04/20 Migraines(Discharge Diagnosis) - 08/04/20 Chronic tension headache(Discharge Diagnosis) - 08/04/20 Smoking(Discharge Diagnosis) - 08/04/20 Anxiety(Discharge Diagnosis) - 08/04/20 Polysubstance abuse(Discharge Diagnosis) - 08/04/20 Major depression, recurrent(Discharge Diagnosis) - 08/04/20 PTSD (post-traumatic stress disorder)(Discharge Diagnosis) - 08/04/20 Seasonal allergies(Discharge Diagnosis) - 08/04/20 Attending Physician: Jade Edwards NP Allergies, Adverse Reactions, Alerts No Known Medication Allergies Immunizations Given and Recorded Vaccine Date Status Refusal Reason tetanus/diphtheria/pertussis, acel(Tdap) 08/04/20 Given Medications meclizine 25 mg oral tablet 1 tablet = 25 mg, By Mouth, 3 times a day, PRN for dizziness, # 30 tablet, 1 Refills, Acute 09/08/20 13:15:00 EDT, 08/09/20 13:25:00 EDT, Tablet, [id number], Partial fill upon patient request if the prescription is for a schedule II op... Start Date: 08/09/20 Stop Date: 09/08/20 Status: Ordered omeprazole 20 mg oral enteric coated capsule [...] 2 Refills, Maintenance, 07/12/20 14:38:00 EDT, Tablet, [id number], Partial fill upon patient request if the prescription is for a schedule II opioid drug. Start Date: 07/12/20 Stop Date: 10/10/20 Status: Ordered Problem List Condition Effective Dates Status Health Status Inform ant Anxiety(Confirmed) Active Chronic tension headache(Confirmed) Active Migraines(Confirmed) Active Polysubstance abuse(Confirmed) Active PTSD (post-traumatic stress disorder)(Confirmed) Active Major depression, recurrent(Confirmed) Active Seasonal allergies(Confirmed) Active Smoking(Confirmed) Active Diagnosis Diagnosis Type Effective Dates Health Status Clinical Service Informant Anxiety Discharge Diagnosis 08/04/20 Major depression, recurrent Discharge Diagnosis 08/04/20 PTSD (post-traumatic stress disorder) Discharge Diagnosis 08/04/20 Polysubstance abuse Discharge Diagnosis 08/04/20 Smoking Discharge Diagnosis 08/04/20 GERD (gastroesophageal reflux disease) Discharge Diagnosis 08/04/20 Migraines Discharge Diagnosis 08/04/20 Chronic tension headache Discharge Diagnosis 08/04/20 Seasonal allergies Discharge Diagnosis 08/04/20 Vital Signs Most recent to oldest [Reference Range]: 1 Weight 62.2 kg (08/04/20 10:42 AM) Oxygen Saturation [94-100 %] 100 % (08/04/20 10:42 AM) Pulse Rate [55-90 bpm] 88 bpm (08/04/20 10:42 AM) Blood Pressure [90-138/55-84 mm Hg] 124/ 88mm Hg (08/04/20 10:42 AM) Respiratory Rate [16-30 br/min] 16 br/mi n (08/04/20 10:42 AM) Mode of Delivery (Oxygen) Room air (08/04/20 10:42 AM) Blood pressure sites Arm, right (08/04/20 10:42 AM) Weight Obtained Via Standing scale (08/04/20 10:42 AM) Social History Social History Type Response Smoking Status Never (less than 100 in lifetime);10 or more cigarettes (1/2 pack or more)/day in last 30 days entered on: 07/12/20 Sex
--- OUTSIDE RECORDS SUMMARY | 2023-03-19 16:04 | XMS_ITS | Continuity of Care Document ---
Author Name Unknown Organization [facility] Address [address] [place] [address]- Care Team Providers Care Hand Wood Sander Name Role Phone Jade Edwards NP Primary Care Physician Encounter [facility] [place] R [id number] Date(s): 12/03/20 - 01/02/21 [facility] [address] [place] [address]- Attending Physician: Edwar Manuel Admitting Physician: Edwar [...]
--- OUTSIDE RECORDS SUMMARY | 2023-03-19 16:04 | XMS_ITS | Continuity of Care Document ---
Author Name Unknown Organization [facility] Address [address] [place] [address]- Care Team Providers Care Warehouse Traffic Supervisor Name Role Phone Jerry ARCHER, Jade Primary Care Physician [id number]08[facility]20 - 09/15/20 [facility] [address] [place] [address]- Encounter Diagnosis GERD (gastroesophageal reflux disease)(Discharge Diagnosis) - 09/08/20 Attending Physician: Jade Edwards NP Allergies, Adverse [...] Diagnosis Diagnosis Type Effective Dates Health Status Cl inical Service Informant GERD (gastroesophagea l reflux disease) Discharge Diagnosis 09/08/20 Social History Social History Type Response Smoking Status Never (less than 100 in lifetime);10 or more cigarettes (1/2 pack or more)/day in last 30 days entered on: 07/12/20 Sex
--- OUTSIDE RECORDS SUMMARY | 2023-03-19 16:04 | XMS_ITS | Continuity of Care Document ---
Author Name Unknown Organization [facility] Address [address] [place] [address]- Care Team Providers Care Crime Specialist Name Role Phone Gladys CASTRO, Shawna Enrique Primary Care Physician ( [phone] Encounter [facility] Date(s): 07/05/21 - 08/04/21 [facility] [address] [place] [address]- Attending Physician: Edwar Manuel Admitting Physician: AdmtrEdwar Referring Physician: Admtr, ArLudin Allergies, Adverse Reactions, Alerts No Known Medication Allergies Immunizations Given and Recorded Vaccine Date Status Refusal Reason tetanus/diphtheria/pertussis, acel(Tdap) 08/04/20 Given tetanus/diphtheria/pertussis, acel(Tdap) 03/07/16 [...] hepatitis B pediatric vaccine 02/16/93 Recorded Medications omeprazole 20 mg oral enteric coated [...] 2 Refills, Maintenance, 07/12/20 14:38:00 EDT, Tablet, [facility] #[id number], Partial fill upon patient request if [...]
--- OUTSIDE RECORDS SUMMARY | 2023-03-19 16:04 | XMS_ITS | Continuity of Care Document ---
Author Name Unknown Organization [facility] Address [address] [place] [address]- Care Team Providers Care Marketing Analytics Manager Name Role Phone Jerry ARCHER, Jade Primary Care Physician [phone] [place] [facility] [place] 07/12/20 - 07/19/20 [facility] [address] [place] [address]- Encounter Diagnosis Elevated BP without diagnosis of hypertension(Discharge Diagnosis) - 07/12/20 Encounter to establish care(Discharge Diagnosis) - 07/12/20 Dizziness(Discharge Diagnosis) - 07/12/20 Headache(Discharge Diagnosis) - 07/12/20 Major depression, recurrent(Discharge Diagnosis) - 07/12/20 PTSD (post-traumatic stress disorder)(Discharge Diagnosis) - 07/12/20 Anxiety(Discharge Diagnosis) - 07/12/20 Migraines(Discharge Diagnosis) - 07/12/20 Smoking(Discharge Diagnosis) - 07/12/20 Polysubstance abuse(Discharge Diagnosis) - 07/14/20 Attending Physician: Jade Edwards NP Allergies, Adverse Reactions, Alerts No Known Medication Allergies Medications meclizine 25 mg oral tablet 1 tablet = 25 mg, By Mouth, 3 times a day, PRN for dizziness, # 30 tablet, 1 Refills, Acute 08/12/20 14:42:00 EDT, 07/12/20 14:40:00 EDT, Tablet, [id number], Partial fill upon patient requestif the prescription is for a schedule II opioid drug. Start Date: 07/12/20 Stop Date: 08/12/20 Status: Ordered ZyrTEC 10 mg oral tablet 1 tablet = 10 mg, By Mouth, Daily, # 30 tablet, 2 Refills, Maintenance, 07/12/20 14:38:00 EDT, Tablet, [id number], Partial fill upon patient request if the prescription is for a schedule II opioid drug. Start Date: 07/12/20 Stop Date: 10/10/20 Status: Ordered Problem List Condition Effective Dates Status Health Status Inform ant Anxiety(Confirmed) Active Migraines(Confirmed) Active Polysubstance abuse(Confirmed) Active PTSD (post-traumatic stress disorder)(Confirmed) Active Major depression, recurrent(Confirmed) Active Smoking(Confirmed) Active Diagnosis Diagnosis Type Effective Dates Health Status Clinical Service Informant Elevated BP without diagnosis of hypertension Discharge Diagnosis 07/12/20 Encounter to establish care Discharge Diagnosis 07/12/20 Migraines Discharge Diagnosis 07/12/20 Smoking Discharge Diagnosis 07/12/20 Anxiety Discharge Diagnosis 07/12/20 Major depression, recurrent Discharge Diagnosis 07/12/20 PTSD (post-traumatic stress disorder) Discharge Diagnosis 07/12/20 Headache Discharge Diagnosis 07/12/20 Dizziness Discharge Diagnosis 07/12/20 Polysubstance abuse Discharge Diagnosis 07/14/20 Procedures Procedure Date Related Diagnosis Body Site Status Dislocated shoulder reduction Completed Vital Signs Most recent to oldest [Reference Range]: 1 Blood Pressure [90-138/55-84 mm Hg] 118/ 70mm Hg (07/12/20 1:00 PM) Blood pressure sites Arm, left (07/12/20 1:00 PM) Social History Social History Type Response Smoking Status Never (less than 100 in lifetime);10 or more cigarettes (1/2 pack or more)/day in last 30 days entered on: 07/12/20 Sex
--- OUTSIDE RECORDS SUMMARY | 2023-03-19 16:04 | XMS_ITS | Continuity of Care Document ---
Author Name Unknown Organization [facility] Address [address] [place] [address]- Care Team Providers Care Electrician Machine Shop Name Role Phone Jerry ARCHER, Jade Primary Care Physician [phone] [place] [facility] [place] 03[place]29/21 - 04/28/21 [facility] [address] [place] [address]- Allergies, Adverse Reactions, Alerts No Known Medication [...] 2 Refills, Maintenance, 07/12/20 14:38:00 EDT, Tablet, [id number], Partial fill upon patient request if [...]
--- OUTSIDE RECORDS SUMMARY | 2023-03-19 16:04 | XMS_ITS | Continuity of Care Document ---
Author Name Unknown Organization [facility] Address [address] [place] [address]- Care Team Providers Care Food Storeroom Clerk Name Role Phone Jade Edwards NP Primary Care Physician [phone] [id number] Date(s): 12/03/20 - 12/10/20 [facility] [address] [place] [address]- Attending Physician: Not on Staff, Attending MD Referring Physician: Not on Staff, Referring MD Allergies, Adverse Reactions, Alerts No Known Medication [...]
--- OUTSIDE RECORDS SUMMARY | 2023-03-19 16:04 | XMS_ITS | Continuity of Care Document ---
Author Name Unknown Organization [facility] Address [address] [place] [address]- Care Team Providers Care Quality Process Auditor Name Role Phone Gladys CASTRO, Shawna Enrique Primary Care Physician [phone] En[place] [facility] [place](s[place] 04/28/21 - 05/28/21 [facility] [address] [place] [address]- Allergies, Adverse Reactions, Alerts No Known Medication [...] 2 Refills, Maintenance, 07/12/20 14:38:00 EDT, Tablet, [facility] #[id number], Partial fill upon patient request [...]
--- OUTSIDE RECORDS SUMMARY | 2023-03-19 16:04 | XMS_ITS | Continuity of Care Document ---
Author Name Unknown Organization [facility] Address [address] [place] [address]- Care Team Providers Care Machinist Linotype Name Role Phone Jerry ARCHER, Jade Primary Care Physician Encounter [facility] [place] Date(s): 07/19/20 - 08/18/20 [facility] [address] [place], [place] [address] Allergies, Adverse Reactions, Alerts No Known Medication Allergies Immunizations Given and Recorded Vaccine Date Status Refusal Reason tetanus/diphtheria/pertussis, acel(Tdap) 08/04/20 Given Medications meclizine 25 mg oral tablet 1 tablet = 25 mg, By Mouth, 3 times a day, PRN for dizziness, # 30 tablet, 1 Refills, Acute 09/08/20 13:15:00 EDT, 08/09/20 13:25:00 EDT, Tablet, [id number], Partial fill upon patient request if the [...] 2 Refills, Maintenance, 07/12/20 14:38:00 EDT, Tablet, [facility]/pharmacy #[id number], Partial fill upon patient request [...]
--- OUTSIDE RECORDS SUMMARY | 2023-03-19 16:04 | XMS_ITS | Continuity of Care Document ---
Author Name Unknown Organization [facility] Address [address] [place] [address]- Care Team Providers Care Sourcing Analyst Name Role Phone Gladys CASTRO, Shawna Enrique Primary Care Physician Encounter [facility] Date(s): 05/04/21 - 08/04/21 [facility] [address] [place] [address]- Attending Physician: Shawna Graham MD Allergies, Adverse Reactions, Alerts No Known [...] 2 Refills, Maintenance, 07/12/20 14:38:00 EDT, Tablet, [facility]/pharmacy #[id number], Partial fill upon patient request if [...]
--- OUTSIDE RECORDS SUMMARY | 2023-03-19 16:04 | XMS_ITS | Continuity of Care Document ---
Author Name Unknown Organization [facility] Address [address] [place] [address]- Care Team Providers Care Photoengraver Name Role Phone Jerry ARCHER, Jade Primary Care Physician [phone] [place] [facility] [place] Date(s): 12/02/20 - 01/01/21 [facility] [address] [place], [place] [address] Allergies, Adverse Reactions, Alerts No Known Medication [...]
[2023-03-19 16:10] LABS: Basophils Absolute Auto 0.1 X10*3/uL (0.0-0.2); Basophils Percent Auto 0.7 % (0-2); Eosinophils Absolute Auto 0.2 X10*3/uL (0.0-0.4); Eosinophils Percent Auto 1.6 % (0-4); Hematocrit 34.5 % (37.0-47.0); Hemoglobin 12.1 g/dl (12.0-16.0); Imm Gran Abs Auto 0.09 X10*3/uL (0.00-0.03); Lymphocytes Absolute Auto 1.5 X10*3/uL (1.2-4.9); Mean Corpuscular HGB Conc 35.1 g/dl (31.0-35.0); Mean Corpuscular Hemoglobin 30.8 pg (27.0-33.0); Mean Corpuscular Volume 87.8 fL (80.0-98.0); Monocytes Absolute Auto 0.6 X10*3/uL (0.1-1.2); Monocytes Percent Auto 5.9 % (2-11); Neutrophils Absolute Auto 7.1 x10*3/uL (2.0-8.3); Neutrophils Percent Auto 74.8 % (45-73); Platelet Count 271 X10*3/uL (160-400); Red Blood Count 3.93 X10*6/uL (4.20-5.50); Red Cell Distribution Width 13.1 % (11.0-16.0); White Blood Count 9.5 X10*3/uL (4.8-10.8)
[2023-03-19 16:19] LABS: INTERNATIONAL NORM RATIO 0.9 (0.9-1.1); Prothrombin Time 11.2 SEC (11.1-13.3)
[2023-03-19 16:20] LABS: Anion Gap 13 (12-20); Blood Urea Nitrogen 8 mg/dL (9-16); Calcium 9.4 mg/dL (8.4-10.2); Carbon Dioxide 22 mmol/L (22-29); Chloride 107 mmol/L (96-108); Creatinine Clr Calc Pharmacy 97.5; Estimated Glomerular Filt Rate > 60; Glucose Random 97 mg/dL (60-115); Magnesium 2.3 mg/dL (1.6-2.6); Potassium 3.9 mmol/L (3.3-5.1); Sodium 138 mmol/L (135-145)
[2023-03-19 16:22] LABS: Partial Thromboplastin Time 31.8 SEC (26.0-36.4)
== END 2023-03-19 19:29 | disposition left against medical advice (07) ==
PROVIDERS: Physician Assistant Medical; Emergency Provider Emergency Medicine
DX: K02.9 Dental caries, unspecified (principal)
CPT/HCPCS: 36415; 80048; 83735; 85025; 85610; 85730; 99281; 99283

== ENCOUNTER 2023-05-18 21:01 | Emergency (ER) | payer OTHER, SELFPAY ==
[2023-05-18 21:32] VITALS: BP 115/78; PULSE 108; RESP 16; TEMP 36.9; O2SAT 97; BMI 23.0
--- NOTE | 2023-05-18 23:14 | ED_ITS ---
HPI - General Adult General Chief complaint: General Medical Stated complaint: Med refill Time Seen by Provider: 05/18/23 22:36 Source: patient Mode of arrival: ambulatory Limitations: no limitations History of Present Illness HPI narrative: Patient comes to the emergency room requesting a refill for olanzapine. Patient states that she was prescribed olanzapine at [facility], ran out of her meds 2 days ago. Patient states that she is currently on therapy with a therapist, but needs to wait at least 2 more months until she is seen by psychiatrist. Patient denies any drug abuse or alcohol abuse. Patient reports insomnia without medication Related Data Previous Rx's Medication Instructions Recorded olanzapine 10 mg tablet 10 mg PO BEDTIME #30 tabs 05/18/23 Allergies Allergy/AdvReac Type Severity Reaction Status Date / Time codeine [CODEINE] Allergy Unknown RASH Verified 05/18/23 21:32 codeine Allergy Unknown hives Uncoded 05/18/23 21:32 Review of Systems Review of Systems: Constitutional : No Weight loss, No Fever, No Chills, No Night Sweats, No Fatigue, No Malaise ENT/Mouth : No Hearing loss, No Ear Pain, No Nasal Congestion, No Sinus Pain, No Hoarseness, No sore throat, No Rhinorrhea, No Swallowing Difficulty Eyes: No Eye Pain, No Swelling, No Redness, No Foreign Body, No Discharge, No Vision Changes Cardiovascular : No Chest Pain, No SOB, No Dyspnea on Exertion, No Orthopnea, No Edema, No Palpitations Respiratory : No Cough, No Sputum, No Wheezing, No Smoke Exposure, No Dyspnea Gastrointestinal : No Nausea, No Vomiting, No Diarrhea, No Constipation, No abdominal Pain, No Hematochezia, No Melena Genitourinary : no irregular bleeding, No Dysuria, No Urinary Frequency, No Hematuria, No Urinary Incontinence, No Urgency, No Flank Pain, No Urinary Flow Changes, No Hesitancy Musculoskeletal : No joint pain, No Myalgias, No Joint Swelling Skin : No Skin Lesions, No rash Neuro : No Weakness, No Numbness, No Paresthesias, No Loss of Consciousness, No Dizziness, No Headache, reports insomnia getting worse without her medications Psych : No Anxiety/Panic, No Depression, No SI/HI/AH/VH, No Social Issues, Heme/Lymph: No Bruising, No Bleeding,No Lymphadenopathy Endocrine : No Polyuria, No Polydipsia, No Temperature Intolerance PMFSH Past Medical History Medical History History of substance abuse Social History Social History Alcohol intake: never Patient Tobacco Use Status: Current everyday Tobacco user Substance Use Type: Crack/Cocaine and Opiates Advance Directives: No Advance Directives Information Provided: Yes Advance Directives Date on File: 05/16/21 service: No Current occupational status: unemployed Physical Exam ED Vital Signs: Vital Signs - 24 hr 05/18/23 21:32 Temperature 98.5 F Pulse Rate 108 H Respiratory Rate 16 Blood Pressure 115/78 Pulse Oximetry 97 Oxygen Delivery Method Room Air BMI result Body Mass Index 23.0 Const Other: Appearance: Alert. Oriented X3. No acute distress. Eyes: Pupils equal, round and reactive to light. ENT: Pharynx normal. Neck: Normal inspection. Neck supple. No lymph nodes noted. No crepitus CVS: Normal heart rate and rhythm. Pulses normal. Normal S1 and S2 Respiratory: No respiratory distress. Breath sounds normal. No Wheezing. No rales Abdomen: Soft and nontender. No rigidity. No distention. Skin: Skin warm and dry. Normal skin color. Normal skin turgor. Extremities: No lower extremity edema. No Lacerations. No Rash Neuro: Oriented X 3. No motor deficit. No sensory deficit. Moving all extremities. No slurred speech. CN 2 through 12 grossly intact Psych: calm, cooperative, normal affect Medical Decision Making Medical Decision Making MDM Narrative: I reviewed patient's medical record, patient does have a prescription for olanzapine 10 mg at bedtime. The prescription approximately a month ago. However, patient states that she was given more medication at [facility] after she was seen here. Discharge Plan Discharge Clinical Impression: Medication refill Instructions: Medicine Refill (ED) Additional Instructions: Please follow-up with your primary care physician tomorrow. If you have any worsening or new symptoms, please return to the emergency room or call 911 Prescriptions: New olanzapine 10 mg tablet 10 mg PO BEDTIME Qty: 30 0RF
[2023-05-18 23:40] VITALS: BP 124/77; PULSE 89; RESP 16; TEMP 36.4; O2SAT 95
== END 2023-05-18 23:41 | disposition home or self-care (01) ==
PROVIDERS: Emergency Provider Emergency Medicine
DX: G47.00 Insomnia, unspecified (principal); Z76.0 Encounter for issue of repeat prescription
CPT/HCPCS: 99282; 99284

== ENCOUNTER 2024-09-29 19:42 | Emergency (ER) | payer MEDICAID, SELFPAY ==
--- NOTE | ~2024-09-29 | XR_ITS ---
CLINICAL HISTORY: chest pain 2 view chest x-ray Comparison: None provided Findings: No consolidation or effusion. No pneumothorax. Normal size heart. No acute fracture. IMPRESSION: No consolidation This document has been electronically signed by: Sonu Blanco MD on 09/29/2024 20:31:14
--- NOTE | 2024-09-29 19:45 | ECG_ITS ---
Test Reason : CHEST PAIN Blood Pressure : */* mmHG Vent. Rate : 69 BPM Atrial Rate : 69 BPM P-R Int : 124 ms QRS Dur : 86 ms QT Int : 388 ms P-R-T Axes : 87 64 58 degrees QTcB Int : 415 ms Normal sinus rhythm Normal ECG When compared with ECG of 18-May-2021 15:41, No significant change was found Referred By: Astrid Kenyon Electronically Signed By: Chase Curran
[2024-09-29 19:50] VITALS: BP 115/58; PULSE 71; RESP 18; TEMP 36.9; O2SAT 97; BMI 20.2
--- NOTE | 2024-09-29 19:52 | ED.GENADULT ---
HPI - General Adult General Chief complaint: Chest Pain Stated complaint: chest pain, SOB started yest., Nausea Time Seen by Provider: 09/30/24 01:11 Related Data Previous Rx's ?Medication ?Instructions ?Recorded olanzapine 10 mg tablet 10 mg PO BEDTIME #30 tabs 05/18/23 ibuprofen 600 mg tablet 600 mg PO Q6H PRN fever or pain 09/30/24 #30 tabs Allergies Allergy/AdvReac Type Severity Reaction Status Date / Time codeine (CODEINE) Allergy Unknown RASH Verified 09/29/24 19:51 codeine Allergy Unknown hives Uncoded 09/29/24 19:51 [facility] Past Medical History Medical History History of substance abuse Social History Social History Alcohol intake: never Patient Tobacco Use Status: Current everyday Tobacco user Smoked in Last 30 Days: No Use of substances other than those prescribed or required for medical reasons: No Substance Use Type: Crack/Cocaine and Opiates Advance Directives: Yes Advance Directives on File: Yes Advance Directives Date on File: 05/16/21 service: No Current occupational status: unemployed Physical Exam ED Vital Signs: BMI result Body Mass Index 20.2 Course Course Course Narrative: This is a rapid medical exam performed by Arcenio Kenyon NP: Additional HPI, ROS, PE not included below will be deferred to primary provider. Patient is a 34-year-old female with history of OUD presenting with complaint of chest pain which began yesterday, associated shortness of breath. Plan: EKG, CXR, labs Medications Administered Discontinued Medications Generic Name Dose Route Start Last Admin Trade Name Freq PRN Reason Stop Dose Admin Ibuprofen 600 mg 09/30/24 01:40 09/30/24 02:02 Ibuprofen 600 Mg Tablet PO 09/30/24 01:41 600 mg ONCE ONE Administration Medical Decision Making Lab Data 09/29/24 20:08 09/29/24 20:08 Labs: Lab Results 09/29/24 Range/Units 20:08 WBC 11.2 H (4.8-10.8) X10*3/uL RBC 3.97 L (4.20-5.50) X10*6/uL Hgb 12.6 (12.0-16.0) g/dl Hct 33.3 L (37.0-47.0) % MCV 83.9 (80.0-98.0) fL MCH 31.7 (27.0-33.0) pg MCHC 37.8 H (31.0-35.0) g/dl RDW 12.6 (11.0-16.0) % Plt Count 264 (160-400) X10*3/uL MPV 11.2 (9.4-12.3) fL Immature Gran % (Auto) 0.4 (0.0-0.4) % Neut % (Auto) 64.8 (45-73) % Lymph % (Auto) 22.5 (20-40) % [place] % (Auto) 9.8 (2-11) % Eos % (Auto) 2.0 (0-4) % Baso % (Auto) 0.5 (0-2) % Lymph # (Auto) 2.5 (1.2-4.9) X10*3/uL [place] # (Auto) 1.1 (0.1-1.2) X10*3/uL Eos # (Auto) 0.2 (0.0-0.4) X10*3/uL Baso # (Auto) 0.1 (0.0-0.2) X10*3/uL Abs Immat Gran (auto) 0.04 H (0.00-0.03) X10*3/uL Absolute Neuts (auto) 7.3 (2.0-8.3) x10*3/uL Absolute Nucleated RBC 0.000 (0.0-0.012) X10*3/uL Nucleated RBC % (auto) 0.0 (0.0-0.2) /100WBC Sodium 141 (135-145) mmol/L Potassium 3.4 (3.3-5.1) mmol/L Chloride 105 (96-108) mmol/L Carbon Dioxide 25 (22-29) mmol/L Anion Gap 14 (12-20) BUN 12 (9-16) mg/dL Creatinine 0.66 (0.5-1.4) mg/dL Estim Creat Clear Calc 95.9 Estimated GFR > 60 Random Glucose 118 H (60-115) mg/dL Calcium 9.0 (8.4-10.2) mg/dL Total Bilirubin 0.3 (0.0-1.0) mg/dL AST 24 (5-31) U/L ALT 17 (0-31) U/L Alkaline Phosphatase 99 (39-117) U/L Troponin I High Sens < 2.7 (<3.5-17.0) ng/L Total Protein 7.1 (6.5-8.0) g/dL Albumin 4.6 (3.5-5.0) g/dL Beta HCG, Quant < 2 mIU/mL Discharge Plan Discharge Clinical Impression: Pleurisy Patient Disposition: Home, Self-Care Instructions: Pleurisy (DC) Additional Instructions: Your chest pain is likely from pleural inflammation Take ibuprofen for pain Follow with the PCP if not better or report to the ER if gets worse stop using cocaine and opiates Prescriptions: New ibuprofen 600 mg tablet 600 mg PO Q6H PRN (Reason: fever or pain) Qty: 30 0RF No Action olanzapine 10 mg tablet 10 mg PO BEDTIME Qty: 30 0RF Interventions: ED Discharge Assessment Last Done: 09/30/24 02:19 Discharge Date/Time: 09/30/24 02:21 Print Language: Northern Irish
[2024-09-29 20:13] LABS: MANUAL DIFF FLAG NO
[2024-09-29 20:35] LABS: Alanine Aminotransferase 17 U/L (0-31); Albumin Level 4.6 g/dL (3.5-5.0); Alkaline Phosphatase 99 U/L (39-117); Anion Gap 14 (12-20); Aspartate Amino Transferase 24 U/L (5-31); Blood Urea Nitrogen 12 mg/dL (9-16); Calcium 9.0 mg/dL (8.4-10.2); Carbon Dioxide 25 mmol/L (22-29); Chloride 105 mmol/L (96-108); Creatinine Clr Calc Pharmacy 95.9; Estimated Glomerular Filt Rate > 60; Potassium 3.4 mmol/L (3.3-5.1); Sodium 141 mmol/L (135-145); Total Protein 7.1 g/dL (6.5-8.0); Troponin-I High Sensitivity < 2.7 ng/L (<3.5-17.0)
[2024-09-29 20:57] LABS: Hematocrit 33.3 % (37.0-47.0); Hemoglobin 12.6 g/dl (12.0-16.0); Imm Gran Abs Auto 0.04 X10*3/uL (0.00-0.03); Imm Gran Pct Auto 0.4 % (0.0-0.4); Lymphocytes Absolute Auto 2.5 X10*3/uL (1.2-4.9); Mean Corpuscular Hemoglobin 31.7 pg (27.0-33.0); Mean Corpuscular Volume 83.9 fL (80.0-98.0); NRBC Abs Auto 0.000 X10*3/uL (0.0-0.012); NRBC Pct Auto 0.0 /100WBC (0.0-0.2); Platelet Count 264 X10*3/uL (160-400); Red Blood Count 3.97 X10*6/uL (4.20-5.50); SCAN SMEAR FLAG 1; White Blood Count 11.2 X10*3/uL (4.8-10.8)
[2024-09-29 20:59] LABS: Mean Corpuscular HGB Conc 37.8 g/dl (31.0-35.0)
[2024-09-29 23:34] VITALS: BP 113/66; PULSE 70; RESP 18; O2SAT 98
--- NOTE | 2024-09-30 00:26 | PC.NURSE ---
Patient resting comfortably in stretcher with significant other at bedside. RR even and unlabored, plan of care ongoing.
[2024-09-30 02:05] VITALS: BP 102/54; PULSE 64; RESP 14; TEMP 36.6; O2SAT 97
[2024-09-30 02:19] VITALS: BP 102/54; PULSE 64; RESP 14; TEMP 36.6; O2SAT 97
== END 2024-09-30 02:21 | disposition home or self-care (01) ==
PROVIDERS: Registered Nurse Emergency; Emergency Provider Internal Medicine
DX: R09.1 Pleurisy (principal); R07.9 Chest pain, unspecified; R11.0 Nausea
CPT/HCPCS: 36415; 71046; 80053; 84484; 84702; 85025; 93005; 99283; 99285

== ENCOUNTER → 2024-09-29 19:45 | Outpatient (BNV) | payer MEDICAID, SELFPAY | PROVIDERS: Emergency Provider Internal Medicine; Visit Provider Internal Medicine Cardiovascular Disease | DX: R94.31 Abnormal electrocardiogram [ECG] [EKG] (principal); R07.9 Chest pain, unspecified | CPT/HCPCS: 93010 ==

== ENCOUNTER → 2024-09-29 19:53 | Outpatient (BNV) | payer MEDICAID, SELFPAY | PROVIDERS: Visit Provider Radiology Neuroradiology | DX: R07.9 Chest pain, unspecified (principal) | CPT/HCPCS: 71046 ==

== ENCOUNTER 2024-10-02 10:11 | Outpatient (REF) | payer MEDICAID, SELFPAY ==
--- OUTSIDE RECORDS SUMMARY | 2024-10-01 17:00 | XMS_ITS | Encounter Summary ---
Author Organization [facility] Address [address] [place] [address] Care Team Providers Care Window Shade Estimator Name Role Phone Unavailable Primary Care Provider Unavailabl e Encounter Details Date Type Department Care Team (Late st Contact Info) Description 10/01/2024 5:00 PM EDT Office Visit [facility] [address] [place] [address] Maria Esther Blanc MD [address] [place] [address] Acute pain of left shoulder; Muscle spasm Social History Tobacco Use Types Packs/Day Years Used Date Smoking Tobacco: Former Cigarettes Smokeless Tobacco: Never Tobacco Cessation:Counseling Given: Not Answered Alcohol Use Standard Drinks/Week Comments Not Currently 0 (1 standard drink = 0.6 oz pur e alcohol) Comments Unknown Sex and Gender Information Value Date Recorded Sex Assigned at Female 08/28/2024 3:27 PM EDT Legal Sex Female 2:42 PM EDT Gender Identity Female 08/28/2024 3:27 PM EDT Sexual Orientation Straight 10/01/2024 3: 55 PM EDT documented as of this encounter Last Filed Vital Signs Vital Sign Reading Time Taken Comments Blood Pressure 133/92 10/01/2024 4:17 PM EDT Pulse 106 10/01/2024 4:17 PM EDT Temperature 36.8 C (98.2 F) 10/01/2024 4:17 PM EDT Respiratory Rate - - Oxygen Saturation 97% 10/01/2024 4:17 PM EDT room air Inhaled Oxygen Concentration - - Weight 49.8 kg (109 lb 12.8 oz) 10/01/2024 4:17 PM EDT Height - - Body Mass Index - - documented in this encounter Progress Notes * Maria Esther Bryant MD - 10/01/2024 5:00 PM EDT Images from the original note were not included. SUBJECTIVE: Efraín Pereira is a 34 y.o. year old female who presents for acute visit/New patient . Occupation:student Lives with:boyfriend - EtOH occasionally once a month less than 3 drinks - smoking cigarettes denies, she vapes - recreational drug use: last use of heroin 3 years ago she uses cocaine once a week, last time sheused cocaine 3 days ago Diet: regular Exercise: sedentary LMP: 09/09/24 Surgeries/Hospitalizations: left arm surgery/ left shoulder surgery PMHx:anxiety/depression/PTSD/bipolar/ADHD FMHx:diabetes, breast cancer grandmother Immunizations: Reviewed Acute Concerns: Patient reports she has been having pain on her left shoulder and chest wall left side reports few months ago she hurt her shoulder when she got out of bed but never significant medical attention andwent away and recently about a week ago she had a bit of this acute pain along chest wall and shoulder reports restraint movements pain is 10/10 and is triggered with palpation in the area, she went to the emergency room for this chest x-ray was done and she was discharged with Tylenol Social History Social History Narrative Not on file Problem List[1] Family History[2] Review of Systems Constitutional: Negative. HENT: Negative. Respiratory: Negative. Cardiovascular: Positive for chest pain. Negative for palpitations and leg swelling. Musculoskeletal: Positive for arthralgias and myalgias. OBJECTIVE: Vitals: 10/01/24 1617 BP: (!) 133/92 BP Location: Left arm Patient Position: Sitting BP Cuff Size: Adult Pulse: 106 Temp: 98.2 ??F (36.8 ??C) SpO2: 97% Weight: 109 lb 12.8 oz (49.8 kg) Physical Exam Constitutional: Appearance: Normal appearance. Cardiovascular: Rate and Rhythm: Normal rate and regular rhythm. Pulmonary: Effort: Pulmonary effort is normal. Breath sounds: Normal breath sounds. Chest: Comments: Tenderness with palpation Abdominal: General: Abdomen is flat. Palpations: Abdomen is soft. Musculoskeletal: Right shoulder: Normal. Left shoulder: Tenderness present. Decreased range of motion. Neurological: Mental Status: She is alert. Follow Up: No follow-ups on file. Medications Ordered Prior to Encounter[3] Problem List Items Addressed This Visit Acute pain of left shoulder I will prescribe for patient Toradol 30 mg IM at the office I prescribed for patient Flexeril 5 mg 3 times a day patient is aware of side effects somnolence and that she cannot drive while taking this medication I prescribed for patient diclofenac 50 mg every 8 hours as needed I let her know she cannot take medication today she can start taking it tomorrow at the same time because of the Toradol injection I ordered Apply heat to the affected area I will order an x-ray and contact patient with results Relevant Medications ketorolac (Toradol) injection 30 mg (Completed) cyclobenzaprine (Flexeril) 5 MG tablet diclofenac (Cataflam) 50 MG tablet Other Relevant Orders XR Shoulder 2+ Views Left Muscle spasm Relevant Medications ketorolac (Toradol) injection 30 mg (Completed) diclofenac (Cataflam) 50 MG tablet [1] Patient Active Problem List Diagnosis Acute pain of left shoulder Muscle spasm [2] No family history on file. [3] No current outpatient medications on file prior to visit. No current facility-administered medications on file prior to visit. documented in this encounter Miscellaneous Notes * Assessment & Plan Note - Maria Esther Bryant MD - 10/01/2024 6:09 PM EDT Associated Problem(s): Acute pain of left shoulder I will prescribe for patient Toradol 30 mg IM at the office I prescribed for patient Flexeril 5 mg 3 times a day patient is aware of side effects somnolence and that she cannot drive while taking this medication I prescribed for patient diclofenac 50 mg every 8 hours as needed I let her know she cannot take medication today she can start taking it tomorrow at the same time because of the Toradol injection I ordered Apply heat to the affected area I will order an x-ray and contact patient with results documented in this encounter Plan of Treatment Upcoming Encounters Date Type Department Care Team (Late st Contact Info) Description 12/05/2024 2:00 PM EDT Office Visit [facility] [address] [place] [id number] Maria Esther Blanc MD [address] [place] [address] Scheduled Orders Name Type Priority Associated Diagnoses Orde r Schedule XR Shoulder 2+ Views Left Imaging Routine Acute pain of left shoulder Expected: 10/01/2024, Expires: 10/01/2025 documented as of this encounter Visit Diagnoses Diagnosis Acute pain of left shoulder Muscle spasm Spasm of muscle documented in this encounter Administered Medications Inactive Administered Medications - up to 3 most recent administrations Medication Order MAR Action Action Date Dose Rate Site ketorolac (Toradol) injection 30 mg 30 mg, Intramuscular, Once, On Sun10/01/24 at 1730, For 1 doseIndications:Acute pain of left shoulder,Muscle spasm Given 10/01/2024 5:30 PM EDT 30 mg Right Deltoid documented in this encounter
--- NOTE | ~2024-10-02 | XR_ITS ---
EXAMINATION: XR SHOULDER, LEFT CLINICAL INFORMATION: pain COMPARISON: None available. TECHNIQUE: AP external rotation, AP, AP internal rotation, and scapular Y views of the left shoulder. FINDINGS: Normal alignment. No fracture. Apparent bowing of the proximal humerus on external rotation is not reproduced on the additional images. Acromioclavicular and glenohumeral joints are intact. No abnormal soft tissue calcification. XR/XR shoulder LT min 2V IMPRESSION: Unremarkable examination. Electronically signed by: Claire Cheney MD 10/02/2024 12:17 PM EDT
--- OUTSIDE RECORDS SUMMARY | 2024-10-02 10:55 | XMS_ITS | Encounter Summary ---
Author Organization Located Within [facility] Address [address] [place] [phone] Phone Care Team Providers Care Director Of Labor And Delivery Name Role Phone Pcp, Unknown Primary Care Provider Unavailabl e Encounter Details Date Type Department Care Team (Late st Contact Info) Description 12/23/2023 Procedure Pass [facility], Ct Scan - [address] [id number] Social History Tobacco Use Types Packs/Day Years Used Date Smoking Tobacco: Every Day Smokeless Tobacco: Never Alcohol Use Standard Drinks/Week Comments Not Currently 0 (1 standard drink = 0.6 oz pur e alcohol) Education Answer Date Recorded Are you interested in more education? Not on jj e 06/17/2022 Are you concerned about learning? Not on file 06/17/2022 No 06/17/2022 No 06/17/2022 Digital Access Answer Date Recorded No 07/18/2022 No 07/18/2022 Reliable internet access at home? Not on file 07/18/2022 Device with a working camera? Not on file Intimate Partner Violence Answer Date R ecorded Are you denied basic needs s uch as food, clothing, or medical care? No 12/23/2023 In the past 12 months have y ou been in a relationship with a person who hurts, threatens, or tries to control you? No 12/23/2023 Are you denied basic needs s uch as food, clothing, or medical care? No 12/23/2023 In the past 12 months have y ou been in a relationship with a person who hurts, threatens, or tries to control you? No 12/23/2023 Comments Unknown Sex and Gender Information Value Date Recorded Sex Assigned at Female 07/01/2020 12:32 AM EDT Legal Sex Female 11:32 PM EDT Gender Identity Female 07/01/2020 12:32 AM EDT Sexual Orientation Straight 07/01/2020 12 :32 AM EDT documented as of this encounter Functional Status * Calculated C-SSRS Risk Score (Lifetime/Recent) Answer Date of Assessment Author No Risk Indicated 12/23/2023 10:21 AM Marine Scott RN * [place] Suicide Severity Rating Scale (Screener/Recent Self-Report) Question Answer Date of Assessment Author 1. Wish to be (Past 1 Month) No 12/23/2023 10:21 AM Alin Arthur RN 2. Non-Specific Active Suicidal Thoughts (Past 1 Month) No 12/23/2023 10:21 AM Alin Arthur RN 6. Suicidal Behavior (Lifetime) No 12/23/2023 10:21 AM Alin Arthur RN documented as of this encounter Plan of Treatment Not on file documented as of this encounter Visit Diagnoses Not on filedocumented in this encounter Care Teams Director Of Labor And Delivery Relationship Specialty Start Date End Date Pcp, Unknown PCP - General 03/02/23 documented as of this encounter Additional Source Comments The information contained in this document represents components of the legal health record. It is not the complete legal health record.Located Within [facility]
== END 2024-10-02 10:12 | disposition home or self-care (01) ==
LOC: HO.HHCX 10:11
PROVIDERS: PCP Internal Medicine; Visit Provider Internal Medicine
DX: M25.512 Pain in left shoulder (principal)
CPT/HCPCS: 73030

== ENCOUNTER → 2024-10-02 10:17 | Outpatient (BNV) | payer MEDICAID, SELFPAY | PROVIDERS: PCP Internal Medicine; Visit Provider Radiology Body Imaging | DX: M25.512 Pain in left shoulder (principal) | CPT/HCPCS: 73030 ==

== ENCOUNTER 2024-11-28 18:26 | Outpatient (REF) | payer MEDICAID, SELFPAY ==
[2024-11-29 03:11] LABS: CT PCR Urine NOT DETECTED (Not Detect.); NG PCR Urine NOT DETECTED (Not Detect.)
== END 2024-11-28 18:27 | disposition home or self-care (01) ==
LOC: HO.HHCLNP 18:26
PROVIDERS: Visit Provider Internal Medicine
DX: Z20.2 Contact with and (suspected) exposure to infections with a predominantly sexual mode of transmission (principal)
CPT/HCPCS: 87491; 87591

== ENCOUNTER 2024-12-05 11:08 | Outpatient (REF) | payer MEDICAID, SELFPAY ==
--- OUTSIDE RECORDS SUMMARY | 2024-11-28 10:15 | XMS_ITS | Encounter Summary ---
Author Organization [employer] Address [address] [facility] 7[address] [place] [address] Care Team Providers Care Extractor Operator Solvent Process Name Role Phone Maria Esther Blanc MD Primary Care Provide r Reason for Referral * Consultation (Routine) - Authorized Specialty Diagnoses / Procedures Referred By Contac t Referred To Contact Psychiatry Diagnoses Mood disorder (CMS/HCC) Maria Esther Blanc MD [address] [place] [address] Phone: tel: fax: [facility] [address] [place] [phone] Phone: tel: fax: Referral ID Status Reason Start Date Expiration Date Visits Requested Visits Authorized [id number] Authorized Specialty Services Required 11/28/2025 1 1 Encounter Details Date Type Department Care Team (Late st Contact Info) Description 11/28/2024 10:15 AM EDT Office Visit [facility] [address], [place] [phone] Maria Esther Blanc MD [address], [place] [phone] Mood disorder (CMS/HCC) (Primary Dx); Migraine with aura and without status migrainosus, not intractable; Screening-pulmonary TB; Screening examination for rubella; Screening examination for STI; Chronic left shoulder pain; Encounter for immunization Social History Tobacco Use Types Packs/Day Years Used Date Smoking Tobacco: Former Cigarettes Smokeless Tobacco: Never Alcohol Use Standard Drinks/Week Comments Not Currently 0 (1 standard drink = 0.6 oz pur e alcohol) Depression Answer Date Recorded Patient Health Questionnaire-9 Score 27 11/28/2024 Patient Health Questionnaire-9 Score 27 11/28/2024 Last PHQ-9: Questionnaire Data Not on file 1 Housing Stability Answer Date Recorded What is your housing situation today? I have housing today, but I am worried about losing housing in the future 11/28/[address] you li ve. Do you have problems with any of the following? Pests such as bugs, ants, or mice;Lead Alleman or Pipes;Water leaks 11/28/2024 Food Insecurity Answer Date Recorded Within the past 12 months, y ou worried that your food would run out before you got money to buy more: Often true 11/28/2024 Within the past 12 months,th e food you bought just didn't last and you didn't have enough money to get more: Often true 11/2024 Transportation Answer Date Recorded In the past 12 months, has l ack of transportation kept you from medical appts, meetings, work or from getting things needed for daily living? Yes, it has kept me from non-medical meetings, work, or getting things that I need 11/28/2024 Utilities Answer Date Recorded In the past 12 months, has t he electric, gas, oil or water company threatened to shut off services in your home? Yes 11/28/2024 Depression Answer Date Recorded Patient Health Questionnaire-2 Score 6 11/28/2024 Internet Access Answer Date Recorded Internet Access Q1 Yes 11/28/2024 Internet Access Q2 Not on file 11/28/2024 Comments Unknown Sex and Gender Information Value Date Recorded Sex Assigned at Female 08/28/2024 3:27 PM EDT Legal Sex Female 2:42 PM EDT Gender Identity Female 08/28/2024 3:27 PM EDT Sexual Orientation Straight 10/01/2024 3: 55 PM EDT documented as of this encounter Last Filed Vital Signs Vital Sign Reading Time Taken Comments Blood Pressure 110/68 11/28/2024 10:31 AM EDT Pulse 79 11/28/2024 10:31 AM EDT Temperature 35.4 C (95.7 F) 11/28/2024 10:31 AM EDT Respiratory Rate 15 11/28/2024 10:31 AM EDT Oxygen Saturation 98% 11/28/2024 10:31 AM EDT Inhaled Oxygen Concentration - - Weight 50.5 kg (111 lb 6.4 oz) 11/28/2024 10:31 AM EDT Height 160 cm (5' 3 ) 11/28/2024 10:31 AM EDT Body Mass Index 19.73 11/28/2024 10:31 AM EDT documented in this encounter Functional Status * Over the past 2 weeks, how often have you been bothered by any of the following problems? Question Answer Date of Assessment Author Patient Health Questionnaire-2 Score 6 11/19 11:28 AM EDT Tamika Gross MA * Little interest or pleasure in doing things Answer Date of Assessment Author Nearly every day 11/28/2024 11:28 AM VERENAT Tamika Gross MA * Feeling down, depressed, or hopeless Answer Date of Assessment Author Nearly every day 11/28/2024 11:28 AM Tamika Brown MA * Trouble falling or staying asleep, or sleeping too much Answer Date of Assessment Author Nearly every day 11/28/2024 11:28 AM EDT Tamika rGoss MA * Feeling tired or having little energy Answer Date of Assessment Author Nearly every day 11/28/2024 11:28 AM Tamika Brown MA * Poor appetite or overeating Answer Date of Assessment Author Nearly every day 11/28/2024 11:28 AM VERENAT Tamika Gross MA * Feeling bad about yourself - or that you are a failure or have let yourself or your family down Answer Date of Assessment Author Nearly every day 11/28/2024 11:28 AM EDTamika Armstrong MA * Trouble concentrating on things, such as reading the newspaper or watching television Answer Date of Assessment Author Nearly every day 11/28/2024 11:28 AM Tamika Brown MA * Moving or speaking so slowly that other people could have noticed? Or the opposite - being so fidgety or restless that you have been moving around a lot more than usual. Answer Date of Assessment Author Nearly every day 11/28/2024 11:28 AM Tamika Brown MA * Thoughts that you would be better off or hurting yourself in some way Answer Date of Assessment Author Nearly every day 11/28/2024 11:28 AM Tamika Brown MA * Patient Health Questionnaire-9 Score Answer Date of Assessment Author 27 11/28/2024 11:28 AM Adama Brown MA * How difficult have these problems made it for you to do your work, take care of things at home, or get along with other people? Answer Date of Assessment Author Extremely difficult 11/28/2024 11:28 AM Tamika Botello MA * Over the last 2 weeks, how often have you been bothered by any of the following problems? Question Answer Date of Assessment Author Feeling nervous, anxious, or on edge 3 11/19 11:27 AM Tamika Brown MA Not being able to stop or co ntrol worrying 3 11/28/2024 11:27 AM Tamika Brown MA Worrying too much about diff erent things 3 11/28/2024 11:27 AM Tamika Brown MA Trouble relaxing 3 11/28/2024 11:27 AM Tamika Brown MA Being so restless that it is hard to sit still 3 11/28/2024 11:27 AM Tamika Brown MA Becoming easily annoyed or irritable 3 11/19 11:27 AM Tamika Brown MA Feeling afraid as if somethi ng awful might happen 3 11/28/2024 11:27 AM Tamika Brown MA INOCENTE-7 Total Score 21 11/28/2024 11:27 AM Tamika Brown MA documented as of this encounter Progress Notes * Maria Esther Bryant MD - 11/28/2024 10:15 AM EDT SUBJECTIVE: Efraín Pereira is a 34 y.o. year old female who presents for New patient . Occupation:student Lives with:boyfriend - EtOH occasionally once a month less than 3 drinks - smoking cigarettes denies, she vapes - recreational drug use: last use of heroin 3 years ago she uses cocaine once a week Diet: regular Exercise: sedentary Surgeries/Hospitalizations: left arm surgery/ left shoulder surgery PMHx:anxiety/depression/PTSD/bipolar/ADHD FMHx:diabetes, breast cancer grandmother Immunizations: Flu vaccine today Shoulder pain improved after receiving toradol IM - Reports history of cysts on ovaries with recurrence of pain - Migraine episodes approximately 3 times per week, right-sided, sometimes preceded by visual disturbances (lights), associated with nausea and sensitivity to light and noise; Excedrin provides relief - History of infections prior to last pap smear, last pap smear performed approximately 2 years ago - Reports vaping for nicotine - Quit heroin 3 years ago, currently using cocaine once a week, expresses desire to quit - Has online health and fitness coach and recently started with a new therapist - Previously diagnosed with bipolar disorder during psych [facility] admission after loss of son, denies current bipolar symptoms, not taking bipolar medications due to adverse effects (diarrhea, weight gain, lack of efficacy) - Reports anxiety and ADHD symptoms - Underwent tuberculosis test and chest x-ray 2 years ago for employment at [employer] - Recent blood work performed during emergency room visit for pain - Denies use of control, comfortable with current contraceptive practices - Previous STI panel performed at [facility] Social History Social History Narrative Not on file Problem List[1] Family History[2] Review of Systems Constitutional: Negative. HENT: Negative. Respiratory: Negative. Cardiovascular: Negative. Musculoskeletal: Positive for arthralgias. Neurological: Positive for headaches. OBJECTIVE: Vitals: 11/28/24 1031 BP: 110/68 BP Location: Left arm Patient Position: Sitting BP Cuff Size: Adult Pulse: 79 Resp: 15 Temp: 95.7 ??F (35.4 ??C) TempSrc: Temporal SpO2: 98% Weight: 111 lb 6.4 oz (50.5 kg) Height: 5' 3 (1.6 m) Physical Exam Constitutional: Appearance: Normal appearance. Cardiovascular: Rate and Rhythm: Normal rate and regular rhythm. Pulmonary: Effort: Pulmonary effort is normal. Breath sounds: Normal breath sounds. Abdominal: General: Abdomen is flat. Palpations: Abdomen is soft. Musculoskeletal: Right lower leg: No edema. Left lower leg: No edema. Neurological: Mental Status: She is alert. Follow Up: No follow-ups on file. Medications Ordered Prior to Encounter[3] Problem List Items Addressed This Visit Mood disorder (CMS/HCC) - Primary Relevant Medications topiramate (Topamax) 25 MG tablet Other Relevant Orders Comprehensive Metabolic Panel TSH W/Reflex to FT4 Lipid Panel, Standard Vitamin D, 25-Hydroxy, Total, Immunoassay HIV-1/2 Antigen and Antibodies, Fourth Generation, with Reflexes Hepatitis A,B,C Profile RPR (Monitor) with Reflex to Titer Referral to [facility] Migraine with aura and without status migrainosus, not intractable I advise to avoid migraine triggers like red wine, chocolate, cheese, strong perfumes Topomax started c/w excedrin PRN RTC 4-6 weeks Relevant Medications topiramate (Topamax) 25 MG tablet Screening-pulmonary TB Relevant Orders T-SPOT??.TB Screening examination for rubella Relevant Orders Measles, Mumps, and Rubella (MMR) Antibodies (IgG) Panel, Immune Status Screening examination for STI Relevant Orders Chlamydia/N. Gonorrhoeae, PCR, Urine Chronic left shoulder pain Patient has an appointment with orthopedics on 12/22/24 I advised not to miss her appointment Other Visit Diagnoses Encounter for immunization Relevant Orders FLU VACCINE TRIVALENT [id number] (Fluarix) 19 yrs + (Completed) [1] Patient Active Problem List Diagnosis Chronic left shoulder pain Muscle spasm Mood disorder (CMS/HCC) Migraine with aura and without status migrainosus, not intractable Screening-pulmonary TB Screening examination for rubella Screening examination for STI [2] No family history on file. [3] Current Outpatient Medications on File Prior to Visit Medication Sig Dispense Refill [DISCONTINUED] diclofenac (Cataflam) 50 MG tablet Take 1 tablet (50 mg) by mouth 3 times daily. 30 tablet 0 No current facility-administered medications on file prior to visit. documented in this encounter Miscellaneous Notes * Assessment & Plan Note - Maria Esther Bryant MD - 11/28/2024 11:08 AM EDT Associated Problem(s): Chronic left shoulder pain Patient has an appointment with orthopedics on 12/22/24 I advised not to miss her appointment * Assessment & Plan Note - Maria Esther Bryant MD - 11/28/2024 11:05 AM EDT Associated Problem(s): Migraine with aura and without status migrainosus, not intractable I advise to avoid migraine triggers like red wine, chocolate, cheese, strong perfumes Topomax started c/w excedrin PRN RTC 4-6 weeks * Addendum Note - Chantale Stratton RN - 11/28/2024 10:15 AM EDTAddended by: CHANTALE STRATTON on: 12/05/2024 08:45 AM Modules accepted: Orders documented in this encounter Plan of Treatment Upcoming Encounters Date Type Department Care Team (Late st Contact Info) Description 12/25/2024 10:45 AM EST Telemedicine [facility] [address], [place] [phone] Maria Esther Blanc MD [address], [place] [phone] Scheduled Orders Name Type Priority Associated Diagnoses Orde r Schedule Comprehensive Metabolic Panel Lab Routine Mood disorder (CMS/HCC) Expected: 11/28/2024 (Approximate), Expires: 11/28/2025 TSH W/Reflex to FT4 Lab Routine Mood disorder (CMS/HCC) Expected: 11/28/2024 (Approximate), Expires: 11/28/2025 Lipid Panel, Standard Lab Routine Mood disorder (CMS/HCC) Expected: 11/28/2024 (Approximate), Expires: 11/28/2025 Vitamin D, 25-Hydroxy, Total, Immunoassay Lab Routine Mood disorder (CMS/HCC) Expected: 11/28/2024 (Approximate), Expires: 11/28/2025 HIV-1/2 Antigen and Antibodies, Fourth Generation, with Reflexes Lab Routine Mood disorder (CMS/HCC) Expected: 11/28/2024 (Approximate), Expires: 11/28/2025 Hepatitis A,B,C Profile Lab Routine Mood disorder (CMS/HCC) Expected: 11/28/2024, Expires: 11/28/2025 RPR (Monitor) with Reflex to Titer Lab Routine Mood disorder ([facility]) Expected: 11/28/2024, Expires: 11/28/2025 T-SPOT .TB Lab Routine Screening-pulmonary TB Expected: 11/28/2024 (Approximate), Expires: 11/28/2025 Measles, Mumps, and Rubella (MMR) Antibodies (IgG) Panel, Immune Status Lab Routine Screening examination for rubella Expected: 11/28/2024 (Approximate), Expires: 11/28/2025 Varicella Zoster Antibody, IgG Lab Routine Encounter for immunization Expected: 12/05/2024 (Approximate), Expires: 12/05/2025 Scheduled Referrals Name Type Priority Associated Diagnoses Order Schedule Referral to Behavioral Health Outpatient Referral Routine Mood disorder ([facility]) Expected: 11/28/2024 (Approximate), Expires: 05/28/2026 documented as of this encounter Procedures Procedure Name Priority Date/Time Associated Diagnosis Comments CHLAMYDIA/TRICHOMON /NEISSERIA GONORRHOEAE, PCR, URINE Routine 11/28/2024 11:19 AM EDT Screening examination for STI documented in this encounter Results * Chlamydia/N. Gonorrhoeae, PCR, Urine (11/28/2024 11:19 AM EDT) CT PCR, Urine NOT DETECTED Not Detect. [facility] Comment:A not detected test result does not exclude the possibilityof infection because test results can be affected byimproper specimen collection, concurrent antibiotic therapy,or the number of organisms in the specimen which may bebelow the sensitivity of the test. As with many diagnostictests, results from the Xpert CT/NG assay should beinterpreted in conjunction with other laboratory andclinical data available to the clinician.The Xpert CT/NG assay should not be used for the evaluationof suspected sexual abuse or for other medico-legalindications. Additional testing is recommended in anycircumstance when false positive or false negative resultscould lead to adverse medical, social or psychologicalconsequences. NG PCR, Urine NOT DETECTED Not Detect. [facility] Comment:A not detected test result does not exclude the possibilityof infection because test results can be affected byimproper specimen collection, concurrent antibiotic therapy,or the number of organisms in the specimen which may bebelow the sensitivity of the test. As with many diagnostictests, results from the Xpert CT/NG assay should beinterpreted in conjunction with other laboratory andclinical data available to the clinician.The Xpert CT/NG assay should not be used for the evaluationof suspected sexual abuse or for other medico-legalindications. Additional testing is recommended in anycircumstance when false positive or false negative resultscould lead to adverse medical, social or psychologicalconsequences. Urine (Urine, Random) 11/28/2024 11:19 AM EDT 11/28/2024 6:27 PM EDT Maria Esther Bryant MD LAB URINE ORDERABLES Final Result [facility] [address] [place] [phone] documented in this encounter Visit Diagnoses Diagnosis Mood disorder (CMS/HCC)- Primary Unspecified episodic mood disorder Migraine with aura and without status migrainosus, not intractable Screening-pulmonary TB Screening examination for pulmonary tuberculosis Screening examination for rubella Screening examination for STI Chronic left shoulder pain Pain in joint, shoulder region Encounter for immunization documented in this encounter Additional Health Concerns Assessment Noted Time PHQ-9 Depression Total Score: 27 025 11:28 AM EDT documented as of this encounter Care Teams Extractor Operator Solvent Process Relationship Specialty Start Date End Date Maria Esther Blanc MD [address] [place] [phone] PCP - General Internal Medicine 11/28/24 documented as of this encounter
--- OUTSIDE RECORDS SUMMARY | 2024-12-05 13:54 | XMS_ITS | Clinical Summary ---
Author Organization [employer] Address [address] [facility] [address] [place] [address] Care Team Providers Care Family Therapist Name Role Phone Maria Esther Blanc MD Primary Care Provide r Allergies Active Allergy Reactions Criticality Noted Date Comments Codeine Hives 10/01/2024 Medications topiramate (Topamax) 25 MG tabletIndicatio ns:Migraine with aura and without status migrainosus, not intractable Take 1 tablet (25 mg) by mouth at bedtime. 30 tablet 2 5 11/29/19 26 Active diclofenac (Cataflam) 50 MG tabletIndicatio ns:Acute pain of left shoulder Take 1 tablet (50 mg) by mouth 3 times daily. 30 tablet 5 11/29/19 25 Discontinued Active Problems Problem Noted Date Diagnosed Date Mood disorder 11/28/2024 Migraine with aura and witho ut status migrainosus, not intractable 11/28/2024 Assessment & Plan (11/28/2024 11:05 AM EDT): I advise to avoid migraine triggers like red wine, chocolate, cheese, strong perfumes Topomax started c/w excedrin PRN RTC 4-6 weeks Screening-pulmonary TB 11/28/2024 Screening examination for rubella 11/28/2024 Screening examination for STI 11/28/2024 Chronic left shoulder pain 10/01/2024 Assessment & Plan (11/28/2024 11:08 AM EDT): Patient has an appointment with orthopedics on 12/22/24 I advised not to miss her appointment Assessment & Plan (10/01/2024 6:09 PM EDT): I will prescribe for patient Toradol 30 [...] an x-ray and contact patient with results Muscle spasm 10/01/2024 Encounters Date Type Department Care Team Description 11/28/2024 10:15 AM EDT Office Visit [facility] MEDICINE [address] [place] [phone] Maria Esther Blanc MD Mood disorder ([facility]) (Primary Dx); Migraine with aura and without status migrainosus, not intractable; Screening-pulmonary TB; Screening examination for rubella; Screening examination for STI; Chronic left shoulder pain; Encounter for immunization 11/28/2024 Travel 11/27/2024 Telephone [facility] MED[facility]INE [address] [place] [address] [phone] Maria Esther Blanc MD Chart Prep 11/20/2024 Patient Outreach [facility] [address] [place] [phone] Maria Esther Blanc MD Pre-visit Planning ((Unable to reach for PVP screening, LVM) to be completed in office ) 10/22/2024 Population Health Risk Score [facility] (C3) Department [address] [place] [phone] Provider, Population Health Generic 10/04/2024 Results Follow-Up [facility] MED & PEDS [address] [place], [place] [phone] Maria Esther Blanc MD XR Shoulder 2+ Views Left 10/03/2024 Telephone [facility] MEDICINE [address] [place] [address] Maria Esther Blanc MD Results 10/01/2024 5:00 PM EDT Office Visit [facility] WALK-IN CENTER [address] [place] [address] Maria Esther Blanc MD Acute pain of left shoulder; Muscle spasm 10/01/2024 Travel 09/18/2024 Telephone [facility] MEDICINE [address] [place], [place] [phone] Ten Quintero MD from Last 3 Months Immunizations Immunization Administration Dates Next Due Influenza, seasonal, injectable, preservative fr ee 11/28/2024 Social History Tobacco Use Types Packs/Day Years [...] Pests such as bugs, ants, or mice;Lead [place] or Pipes;Water leaks 11/28/2024 Food Insecurity Answer [...] Orientation Straight 10/01/2024 3: 55 PM EDT Last Filed Vital Signs Vital Sign Reading [...] Mass Index 19.73 11/28/2024 10:31 AM EDT Plan of Treatment Upcoming Encounters Date Type Department Care Team (Late st Contact Info) Description 12/25/2024 10:45 AM EST Telemedicine [facility] MEDICINE [address] [place] [address] Maria Esther Blanc MD [address] [place] [address] Health Maintenance Due Date Last Done Comments HIV Screening 1990 Family Planning (PISQ) 07/20/2006 HPV Vaccines (3 - 2-dose series) 12/04/2006 09/06/2006, 06/04/2006 Hepatitis C Screening 07/20/2009 Pap Smear 07/20/2012 Cervical Cancer Screening 07/20/2021 HPV/Cotest 07/20/2021 COVID-19 Vaccine ( season) 2024 03/04/2022 Depression Monitoring 05/29/2025 11/28/2024, 025 Alcohol/Substance Use Screening 11/28/2025 11/28/2024 Disability Screening 11/28/2025 11/28/2024 SDOH Screening 11/28/2025 11/28/2024 Tobacco Screening 11/28/2025 11/28/2024 DTaP/Tdap/Td Vaccines (10 - Td or Tdap) 08/04/2030 08/04/2020, 04/04/2016, 03/07/2016, Additional history exists Zoster Vaccines (1 of 2) 07/20/2041 RSV Patients and Patients Aged 60 years or older (1 - 1-dose 75+ series) 07/20/2066 HIB Vaccines Completed 02/16/1993, 09/19, 1991, Additional history exists Hepatitis B Vaccines Completed 07/02/1995, 03/16/1993, 02/16/1993 IPV Vaccines Completed 07/16/1996, 09/19, 1991, Additional history exists Meningococcal Vaccine Completed 12/16/2007 Pneumococcal Vaccine: Pediatrics (0 to 5 Years) and At-Risk Patients (6 to 49) Years Aged Out 04/04/2016 No longer eligible based on patient's age to complete this topic Influenza Vaccine Completed 11/28/2024, , 11/17/2011 Hepatitis A Vaccines Aged Out No long er eligible based on patient's age to complete this topic Meningococcal B Vaccine Aged Out No l onger eligible based on patient's age to complete this topic RSV under 20 months Aged Out No longe r eligible based on patient's age to complete this topic Rotavirus Vaccines Aged Out No longer eligible based on patient's age to complete this topic Procedures Procedure Name Priority Date/Time Associated Diagnosis Comments CHLAMYDIA/TRICHOMON /NEISSERIA GONORRHOEAE, PCR, URINE Routine 11/28/2024 11:19 AM EDT Screening examination for STI XR SHOULDER 2+ VIEWS LEFT Routine 10/02/2024 9:46 AM EDT Acute pain of left shoulder from Last 3 Months Results * Chlamydia/N. Gonorrhoeae, PCR, Urine (11/28/2024 11:19 AM EDT) CT PCR, Urine NOT DETECTED Not Detect. [facility] Comment:A not detected test result does [...] NG PCR, Urine NOT DETECTED Not Detect. [facility] Comment:A not detected test result does [...] 11:19 AM EDT 11/28/2024 6:27 PM EDT us Maria Esther Bryant MD LAB URINE ORDERABLES Final Result [facility] [address] [place] [phone] * XR Shoulder 2+ Views Left (10/02/2024 9:46 AM EDT) Anatomical Region Laterality Modality Upper Extremities, Shoulder Left Radi ographic Imaging 10/02/2024 9:46 AM EDT Narrative 10/02/2024 12:20 PM EDT [address] [address] XRay Report Signed Patient: Efraín Pereira MR#: [id number] : 1990 Acct:[id number] Age/Sex: 34 / F ADM Date: 10/02/24 Loc: HO.HHCX Attending Dr: Maria Esther Bryant MD Ordering Physician: Maria Esther Blanc MD Date of Service: 10/02/24 Procedure(s): XR shoulder LT min 2V Accession Number(s): [id number] cc: Maria Esther Blanc MD EXAMINATION: XR SHOULDER, LEFT CLINICAL INFORMATION: pain COMPARISON: None available. TECHNIQUE: AP external rotation, AP, AP internal rotation, and scapular Y views of the left shoulder. FINDINGS: Normal alignment. No fracture. Apparent bowing of the proximal humerus on external rotation is not reproduced on the additional images. Acromioclavicular and glenohumeral joints are intact. No abnormal soft tissue calcification. XR/XR shoulder LT min 2V IMPRESSION: Unremarkable examination. Electronically signed by: Claire Cheney MD 10/02/2024 12:17 PM EDT RP Dictated By: Claire Cheney MD Signed By: <Electronically signed by Claire Cheney MD in OV> 10/02/24 1217 DD/ 0946 TD/TT: 10/02/24 0950 Glass Installer Technician: Procedure Note Donotuseinterpreter, Image - 10/02/[address] [address] XRay Report Signed Patient: Efraín PereiraMR#: [id number] : 1990Acct:[id number] Age/Sex: 34 / FADM Date: 10/02/24 Loc: HO.HHCX Attending Dr: Maria Esther Bryant MD Ordering Physician: Maria Esther Blanc MD Date of Service: 10/02/24 Procedure(s): XR shoulder LT min 2V Accession Number(s): [id number] cc: Maria Esther Blanc MD EXAMINATION: XR SHOULDER, LEFT CLINICAL INFORMATION: pain COMPARISON: None available. TECHNIQUE: AP external rotation, AP, AP internal rotation, and scapular Y views of the left shoulder. FINDINGS: Normal alignment. No fracture. Apparent bowing of the proximal humerus on external rotation is not reproduced on the additional images. Acromioclavicular and glenohumeral joints are intact. No abnormal soft tissue calcification. XR/XR shoulder LT min 2V IMPRESSION: Unremarkable examination. Electronically signed by: Claire Cheney MD 10/02/2024 12:17 PM EDT RP Dictated By: Claire Cheney MD Signed By: <Electronically signed by Claire Cheney MD in OV> 10/02/24 1217 DD/ 0946 TD/TT: 10/02/24 0950 Glass Installer Technician: Maria Esther Bryant MD IMG XR PROCEDURES Fin al Result from Last [address] [place] [address] [place] [address] C3 Care Teams Family Therapist Relationship Specialty Start Date End Date Maria Esther Blanc MD [address] [place] [phone] PCP - General Internal Medicine 11/28/24
--- OUTSIDE RECORDS SUMMARY | 2024-12-05 13:54 | XMS_ITS | Encounter Summary ---
Author Organization [facility] Address [address] [place] [phone] Phone Care Team Providers Care Panel Raiser Operator Name Role Phone Pcp, Unknown Primary Care Provider Unavailabl e Encounter Details Date Type Department Care Team (Late st Contact Info) Description 12/23/2023 Procedure [facility], Ct Scan - [address] [address] Social History Tobacco Use Types Packs/Day Years [...] 12/23/2023 10:21 AM Marine Scott RN * [place] Suicide Severity Rating Scale (Screener/Recent Self-Report) Question [...] on filedocumented in this encounter Care Teams Panel Raiser Operator Relationship Specialty Start Date End Date Pcp, Unknown PCP - General 03/02/23 documented as of this encounter Additional Source Comments The information contained in this document represents components of the legal health record. It is not the complete legal health record.[facility]
--- OUTSIDE RECORDS SUMMARY | 2024-12-05 13:54 | XMS_ITS | Clinical Summary ---
Author Organization [facility] Address [address] [place], [place] [phone] Phone Care Team Providers Care Associate Professor Of Violin Name Role Phone Pcp, Unknown Primary Care Provider Unavailabl e Allergies No known active allergies Medications ARIPiprazole (ABILIFY) 5 MG tablet Take 5 mg by mouth. 04/07/2022 Active Active Problems Problem Noted Date Diagnosed Date Suicidal ideation 03/03/2023 Immunizations Immunization Administration Dates Next Due COVID-19 (Pre-12/11) Moderna Vaccine, Bivalent 6mo+ 03/04/2022 DTP 02/16/1993, 3,1991,09/03 DTaP 04/04/2016,07/16/1996 HPV,quadrivalent 09/06/2006,06/04/2006 Hepatitis B 07/02/1995,03/16/1993,02/16/1993 Hib,HbOC 02/16/1993, 3,1991,09/03 INFLUENZA, SPLIT VIRUS, TRIV ALENT W/ PRESERVATIVE IM 11/25/2013,11/17/2011 MMR 07/16/1996,10/07/1992 Meningococcal MCV4P 12/16/2007 Pneumococcal polysaccharide PPSV23 04/04/2016 Polio - OPV 07/16/1996, 3,1991,09/03 Td, unspecified formulation 10/13/2003 Tdap 08/04/2020,03/07/2016,11/17/2011 Social History Tobacco Use Types Packs/Day Years Used Date Smoking Tobacco: Every Day Smokeless Tobacco: Never Tobacco Cessation:Ready to Q uit: Not Asked; Counseling Given: Not Answered Alcohol Use Standard Drinks/Week [...] as food, clothing, or medical care? No 02/09/2024 In the past 12 months have y ou been in a relationship with a person who hurts, threatens, or tries to control you? No 02/09/2024 Are you denied basic needs s uch as food, clothing, or medical care? No 02/09/2024 In the past 12 months have y ou been in a relationship with a person who hurts, threatens, or tries to control you? No 02/09/2024 Comments Unknown Sex and Gender Information Value Date Recorded Sex Assigned at Female 07/01/2020 12:32 AM EDT Legal Sex Female 11:32 PM EDT Gender Identity Female 07/01/2020 12:32 AM EDT Sexual Orientation Straight 07/01/2020 12 :32 AM EDT Last Filed Vital Signs Vital Sign Reading Time Taken Comments Blood Pressure 113/78 02/09/2024 9:49 PM EST Pulse 65 02/09/2024 9:49 PM EST Temperature 36.3 C (97.3 F) 02/09/2024 9:49 PM EST Respiratory Rate 15 02/09/2024 9:49 PM EST Oxygen Saturation 96% 02/09/2024 9:49 PM EST Inhaled Oxygen Concentration - - Weight 51.5 kg (113 lb 8 oz) 02/09/2024 4:11 PM EST Height 162.6 cm (5' 4 ) 02/09/2024 4:11 PM EST Body Mass Index 19.48 02/09/2024 4:11 PM EST Plan of Treatment Health Maintenance Due Date Last Done Comments DEPRESSION SCREENING 2003 SMOKING Hx and SMOKELESS TOBACCO SCREENING 07/20/2004 HEPATITIS C SCREENING 07/20/2009 HIV ONE-TIME SCREENING (18-65 YEARS) 07/20/2009 PAP SMEAR 07/20/2012 PNEUMOCOCCAL VACCINES (0-49 years) (2 of 2 - PCV) 04/04/2017 04/04/2016 INFLUENZA VACCINE (#1) 2024 7, 11/25/2013, 11/17/2011 COVID-19 VACCINE (3 - season) 2024 03/04/2022, 08/04/2020 Adult Td,Tdap Booster 08/04/2030 08/04/2020 , 03/07/2016, 11/17/2011, Additional history exists HIB VACCINES Completed 02/16/1993, 09/19, 1991, Additional history exists MENINGOCOCCAL VACCINES (ACWY) Completed 12/16/2007 HEPATITIS A VACCINES Aged Out No long er eligible based on patient's age to complete this topic MENINGOCOCCAL VACCINES (B) Aged Out N o longer eligible based on patient's age to complete this topic Medical Devices Not on file [facility] DIRECT [facility] DIRECT [facility] DIRECT [facility] DIRECT Care Teams Associate Professor Of Violin Relationship Specialty Start Date End Date Pcp, Unknown PCP - General 03/02/23 Additional Source Comments The information contained in this document represents components of the legal health record. It is not the complete legal health record.[facility]
[2024-12-05 16:20] LABS: Alanine Aminotransferase 16 U/L (0-31); Albumin Level 5.0 g/dL (3.5-5.0); Anion Gap 11 (12-20); Aspartate Amino Transferase 19 U/L (5-31); Blood Urea Nitrogen 9 mg/dL (9-16); Calcium 9.2 mg/dL (8.4-10.2); Carbon Dioxide 21 mmol/L (22-29); Chloride 111 mmol/L (96-108); Cholesterol 122 mg/dL (<200); Estimated Glomerular Filt Rate > 60; HDL Cholesterol 47 mg/dL (>40); Potassium 3.8 mmol/L (3.3-5.1); Sodium 139 mmol/L (135-145); Total Protein 7.7 g/dL (6.5-8.0); Triglycerides 46 mg/dL (<150)
[2024-12-05 18:07] LABS: Alkaline Phosphatase 77 U/L (39-117)
[2024-12-06 09:33] LABS: Rubeola IgG (Measles) 267.00 AU/mL
[2024-12-06 10:29] LABS: HBS Num1 67.47 mIU/mL (0-7.99); HBc Num1 0.08 S/CO (0.00-0.79); HBsAGNum1 0.68 S/CO (0.00-0.99); HIV Num 1 0.07 S/CO (0.00-0.99); Hepatitis A Antibody IgM 0.24 Index (0-0.79); Hepatitis B Surface Antigen Negative (Negative); ~HepC Num1 0.45 S/CO (0.00-0.79); ~Hepatitis A Antibody IgM Nonreactive (Nonreactive); ~Hepatitis B Surface Antibody REACTIVE (Nonreactive); ~Hepatitis C Antibody Nonreactive (Nonreactive)
[2024-12-08 10:28] LABS: TS Negative Control Passed; TS Panel A 1; TS Panel B 8; TS Positive Control Passed; TSpotTB Positive (Negative)
== END 2024-12-05 11:09 | disposition home or self-care (01) ==
LOC: HO.HHCL 11:08
PROVIDERS: PCP Internal Medicine; Visit Provider Internal Medicine
DX: M25.512 Pain in left shoulder (principal); F39 Unspecified mood [affective] disorder; Z11.1 Encounter for screening for respiratory tuberculosis; Z11.59 Encounter for screening for other viral diseases; Z11.4 Encounter for screening for human immunodeficiency virus [HIV]; Z01.84 Encounter for antibody response examination; Z11.3 Encounter for screening for infections with a predominantly sexual mode of transmission
CPT/HCPCS: 36415; 80053; 80061; 82306; 84443; 86481; 86592; 86704; 86706; 86709; 86735; 86762; 86765; 86787; 86803; 87340; 87389; 99212

== ENCOUNTER 2024-12-05 11:51 | Outpatient (AMB) | payer MEDICAID, SELFPAY ==
--- NOTE | 2024-12-05 11:58 | A.OFFVIS_ITS ---
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 PCP referred due to pain and limited ROM due to pain. She reports at her PCP visit a left shoulder surgery in the past. Today patient reports that she had surgery while she was in 5th grade due to a fracture in her shoulder. States shoulder discomfort since last iwnter however pain increased a couple of months ago upon getting out of bed. She was given a toradol injection 10/01/24 by PCP which provided her with relief. Her painis located at her clavicle area. States her arm at times feels paralyzed and takes her breath away. She describes her discomfort as a weird sensation. Allergies codeine (CODEINE) Allergy (Unknown, Verified 09/29/24 19:51) RASH codeine Allergy (Unknown, Uncoded 09/29/24 19:51) hives Medication List - Last Reconciled 12/05/24 by Darlene Castellanos PA-C ibuprofen 600 mg PO Q6H PRN topiramate 25 mg PO BEDTIME HPI HPI LINUX SERVER ENGINEER-LT shoulder pain: Details: 34-year-old female presents to the office today for left upper extremity pain. She states when she was around 5th grade she had surgery when from a soccer injury. She had a fx humerus . End of august she felt a strange pain in the left shoulder which extended into the chest. She denies injury. States she woke up 1 morning with it she did go to the emergency department and had a negative workup. She states the symptoms have resolved and she has not had any since. [facility] Medical History (Updated 12/05/24 @ 13:42 by Darlene Castellanos PA-C) History of substance abuse Surgical History (Updated 12/05/24 @ 12:03 by Catrina Sommer Anne) History of shoulder surgery Social History Alcohol intake: never Patient Tobacco Use Status: Current everyday Tobacco user Substance Use Type: Crack/Cocaine and Opiates Advance Directives Date on File: 05/16/21 service: No Current occupational status: unemployed Review of Systems Const All systems reviewed & are unremarkable except as noted in HPI and below Physical Exam Const General: cooperative and no acute distress Orientation/consciousness: patient oriented x3 Resp Effort & Inspection: normal respiratory effort and able to speak in complete sentences Cardio Peripheral pulses: Peripheral pulses 2+ throughout Neuro General: patient oriented x3 Extrem Other: Left shoulder is normal to inspection she has full range of motion in all planes. She has no pain with any type of resistance testing. Neurovascularly intact. Results Reviewed Results Reviewed: X-rays of the left shoulder obtained in the emergency department on 10/02/2024 do show evidence of old healed humeral shaft fracture. Glenohumeral joint and AC joint are well preserved. Assessment & Plan Assessment & Plan (1) Left shoulder pain: Code(s): M25.512 - Pain in left shoulder Category: Medical Plan: At this time she is asymptomatic and has no concerns. If any symptoms arise she can contact our emergency department to be seen or her PCP. Follow up as needed. Medications: Discontinued olanzapine Discontinued Reason: Patient no longer taking 10 mg PO BEDTIME 30 tabs 0RF Coding Level of Care Code New Pt Level 3 (82732) Complex EM visit Add On G2211 Diagnoses Left shoulder pain M25.512
== END 2024-12-05 12:40 | disposition home or self-care (01) ==
LOC: HO.HOS 11:51
PROVIDERS: PCP Internal Medicine; Visit Provider Physician Assistant
DX: M25.512 Pain in left shoulder (principal)
CPT/HCPCS: 99203

== ENCOUNTER 2024-12-09 11:19 | Outpatient (REF) | payer MEDICAID, SELFPAY ==
--- NOTE | ~2024-12-09 | XR_ITS ---
EXAMINATION: XR CHEST CLINICAL INFORMATION: positive T spot COMPARISON: Previous chest x-ray most recent September 2024 TECHNIQUE: 2 views of the chest were obtained. FINDINGS: No significant abnormality is noted involving the heart, lungs, mediastinum, bony thorax or soft tissues. XR/XR chest 2V IMPRESSION: Unremarkable examination. Electronically signed by: Mckayla Clayton MD 12/09/2024 03:58 PM EDT RP
== END 2024-12-09 11:20 | disposition home or self-care (01) ==
LOC: HO.HHCX 11:19
PROVIDERS: PCP Internal Medicine; Visit Provider Internal Medicine
DX: R76.11 Nonspecific reaction to tuberculin skin test without active tuberculosis (principal)
CPT/HCPCS: 71046

== ENCOUNTER → 2024-12-09 15:29 | Outpatient (BNV) | payer MEDICAID, SELFPAY | PROVIDERS: PCP Internal Medicine; Visit Provider Radiology Diagnostic Radiology | DX: R76.11 Nonspecific reaction to tuberculin skin test without active tuberculosis (principal) | CPT/HCPCS: 71046 ==